=== PATIENT | female | born 1960 | race Caucasian/White ===

== ENCOUNTER → 2020-04-12 08:32 | Outpatient (CLI) | payer BC, SELFPAY ==
--- NOTE | ~2020-04-12 | MR_ITS ---
EXAMINATION: MR shoulder RT wo con DATE: 04/12/2020 09:06 INDICATION: Right shoulder pain and inability to externally rotate the right arm TECHNIQUE: Magnetic resonance imaging (MRI) of the right shoulder was performed without intravenous c ontrast. Sequences included axial PD-weighted FS FSE, coronal oblique PD-weighted FS FSE, coronal obl ique T2-weighted FS FSE, sagittal PD-weighted FS FSE, and sagittal T1-weighted SE. COMPARISON: None. FINDINGS: Coracoacromial arch: The acromion undersurface is curved in morphology (type II). The coracoacromial ligament is normal. M inimal acromioclavicular osteoarthritis. Rotator cuff: Mild supraspinatus tendinopathy without discrete tear. The infraspinatus, teres minor and subscapular is tendons are normal. Normal rotator cuff muscle bulk and signal. Biceps tendon, glenoid labrum and glenohumeral cartilage: Long head of the biceps tendon is normal. There is a small tear at the 12:00 position of the glenoid labrum. Glenohumeral cartilage is normal. Fluid: Small amount of fluid in the long head biceps tendon sheath which is disproportionate to the physiolo gic amount fluid in the glenohumeral joint space consistent with mild bicipital tenosynovitis. No loo se osteochondral bodies. Mild increased fluid signal in the subacromial/subdeltoid bursa consistent w ith minimal bursitis. Bones: Normal marrow signal with no edema, fracture or abnormal marrow replacing process. Minimal cystic william nge at the posterior facet of the greater tuberosity. IMPRESSION: 1. Mild supraspinatus tendinopathy without discrete tear. 2. Small tear at the 12:00 position of the superior glenoid labrum. 3. Mild bicipital tenosynovitis with normal-appearing tendon. 4. Minimal subacromial/subdeltoid bursitis. Reviewed, dictated and finalized at location A.
== END ==
PROVIDERS: Visit Provider Nurse Practitioner
DX: M75.51 Bursitis of right shoulder (principal); M75.21 Bicipital tendinitis, right shoulder
CPT/HCPCS: 73221

== ENCOUNTER 2020-09-19 12:50 | Outpatient (CLI) | payer BC, SELFPAY ==
--- NOTE | ~2020-09-19 | DEXA_ITS ---
Bone Density Report Name: Екатерина Raza Age: 60 Sex: Female Ethnicity: White Date of : 1960 Indication: osteopenia; hysterectomy; Referring Provider: RACHEL ORDOÑEZ Study: Bone densitometry was performed. Exam Date: September 19, 2020 Accession number: [id number] Bone Density: Region BMD T-score Z-score Classification AP Spine (L1-L4) 0.805 -2.2 -0.7 Osteopenia Femoral Neck (Left) 0.610 -2.2 -0.8 Osteopenia Total Hip (Left) 0.820 -1.0 0.0 Normal Total Hip Bilateral Avg 0.819 -1.0 0.0 Osteopenia Femoral Neck (Right) 0.627 -2.0 -0.6 Osteopenia Total Hip (Right) 0.817 -1.0 0.0 Normal World Health Organization criteria for BMD impression classify patients as: Normal (T-score at or above -1.0), Osteopenia (T-score between -1.0 and -2.5), or Osteoporosis (T-score at or below -2.5). 10-year Fracture Risk(1): Major Osteoporotic Fracture 10% Hip Fracture 1.5% Reported Risk Factors: [place] (), Neck BMD=0.610, BMI=23.2 (1) FRAX(R) Version 3.08. Fracture probability calculated for an untreated patient. Fracture probability may be lower if the patient has received treatment. Previous Exams: Region Exam Age BMD T-score BMD Change BMD Change Date g/cm2 vs Baseline vs Previous AP Spine(L1-L4) 09/19/2020 60 0.805 -2.2 -0.193(-19.3%) -0.043(-5.1%)# 06/23/2018 58 0.848 -1.8 -0.150(-15.0%) -0.097(-10.3%) 10/19/2015 55 0.944 -0.9 -0.053(-5.3%)# -0.035(-3.6%)# 03/19/2012 52 0.979 -0.6 -0.018(-1.8%)# -0.018(-1.8%)# 04/09/2007 47 0.997 -0.5 Total Hip(Left) 09/19/2020 60 0.820 -1.0 -0.082(-9.1%)# 0.019(2.4%)# 06/23/2018 58 0.801 -1.2 -0.101(-11.2%) -0.059(-6.8%)* 10/19/2015 55 0.859 -0.7 -0.042(-4.7%)# -0.087(-9.1%)# 03/19/2012 52 0.946 0.0 0.044(4.9%)# 0.044(4.9%)# 04/09/2007 47 0.902 -0.3 Total Hip(Right) 09/19/2020 60 0.817 -1.0 -0.072(-8.1%)# 0.006(0.7%)# 06/23/2018 58 0.811 -1.1 -0.078(-8.8%)# -0.053(-6.1%)* 10/19/2015 55 0.864 -0.6 -0.025(-2.8%)# -0.054(-5.9%)# 03/19/2012 52 0.918 -0.2 0.029(3.2%)# 0.029(3.2%)# 04/09/2007 47 0.890 -0.4 *Denotes significance at 95% confidence level, LSC for AP Spine = 0.022 g/cm2, LSC for Total Hip = 0.027 g/cm2 Clinical Information Provided by Patient: Has used the following medications: Vitamin D, Calcium Has the following medical conditions: Hysterectomy Patient maximum height was 62 Menopause Age: 51 No regular weight bearing exercise Onset of menses a
== END 2020-09-19 12:51 | disposition home or self-care (01) ==
PROVIDERS: PCP Family Medicine; Visit Provider Obstetrics & Gynecology
DX: Z78.0 Asymptomatic menopausal state (principal); M85.88 Other specified disorders of bone density and structure, other site; M85.852 Other specified disorders of bone density and structure, left thigh; M85.851 Other specified disorders of bone density and structure, right thigh
CPT/HCPCS: 77080

== ENCOUNTER → 2021-06-08 10:34 | Outpatient (CLI) | payer BC, SELFPAY ==
--- NOTE | ~2021-06-08 | MR_ITS ---
EXAMINATION: MR femur LT wo con DATE: 06/08/2021 11:30 INDICATION: Left hip pain. TECHNIQUE: Magnetic resonance imaging (MRI) of the left femur was performed without intravenous contr ast. Sequences included axial T1-weighted FSE and T2-weighted FS FSE and coronal and sagittal STIR FS E and T1-weighted FSE. COMPARISON: Pelvis and left hip radiographs 05/28/2021 FINDINGS: Bone alignment is normal. No fracture. The hip joints are normal on large [id number] natalya ges. The musculature is normal. The neurovascular bundles are normal. There is subcutaneous fat stran ding in the medial and lateral thigh. IMPRESSION: 1. Subcutaneous fat stranding in the medial and lateral thigh, likely mild inflammation. Reviewed, dictated and finalized at location A. IMPRESSION: 1. Subcutaneous fat stranding in the medial and lateral thigh, likely mild infl ammation.
== END ==
PROVIDERS: PCP Family Medicine; Visit Provider Nurse Practitioner Family
DX: M25.552 Pain in left hip (principal)
CPT/HCPCS: 73721

== ENCOUNTER 2025-01-24 01:43 | Day surgery (SDC) | payer MEDICARE, SELFPAY ==
[2025-01-11 14:11] VITALS: BMI 23.3
[2025-01-24] VITALS (7 sets, daily range): BP systolic 114–166; BP diastolic 57–77; PULSE 46–60; RESP 16–23; TEMP 36.2; O2SAT 99–100; BMI 23.1
--- OUTSIDE RECORDS SUMMARY | 2025-01-24 01:46 | XMS_ITS | Encounter Summary ---
Author Organization [facility] Healthcare Address [address] [place] [address] Care Team Providers Care Fashion Intern Name Role Phone Alanna Alvarez MD Primary Care Provider Unknown, Nighat Primary Care Provider Unavail able Anel Marc MD Primary Care Provider Manuel Ziegler MD Primary Care Provider [phone] Estella Li NP Unavailable [phone] Ralph Bosch MD Unavailable [phone] Abhishek Edwards MD Unavailable [phone] Duncan Jones MD Unavailable [phone] Brandon Marquez MD Unavailable [phone] Meg Rueda MD Unavailable [phone] Sofia Covarrubias MD Unavailable [phone] Encounter Details Date Type Department Care Team (Late st Contact Info) Description 01/17/2021 Telephone [facility] - Imaging [address] [place] [address] Transcribed Order, Provider Social History Tobacco Use Types Packs/Day Years Used Date Smoking Tobacco: Never Smokeless Tobacco: Never Alcohol Use Standard Drinks/Week Comments Yes 0 (1 standard drink = 0.6 oz pur e alcohol) AUDIT-C Answer Date Recorded Q1: How often do you have a drink containing alc ohol? 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 12/09/2022 12/10/2022 03/09/2023 3:05 AM C DT documented as of this encounter Care Teams Fashion Intern Relationship Specialty Start Date End Date Alanna Alvarez MD PCP - General Family Medicine 07/14/18 04/08/21 Unknown, Notinfile PCP - General 04/09/21 06/18/21 Anel Marc MD PCP - General Family Practice 06/19/21 08/07/21 Manuel Ziegler MD PCP - General Family Medicine 08/08/21 Estella Li NP [address] [place] [id number] Registered Nurse 02/18/22 Ralph Bosch MD [address] [facility] [address] [place] [address] Referring Physician Obstetrics and Gynecology 08/21/22 Abhishek Edwards MD [facility] [place] [address] Consulting Physician Otolaryngology 09/01/24 Duncan Jones MD [address] [facility] [address] [place] [address] Consulting Physician Neurology 09/01/24 Brandon Marquez MD [address] [facility] [address] [place] [address] Referring Physician Bone Health 09/01/24 Meg Rueda MD [address] [facility] [address] [place] [address] Referring Physician Cardiology 09/01/24 Sofia Covarrubias MD [address] [facility] [address], [place] [address] Consulting Physician Interventional Cardiology 09/01/24 documented as of this encounter
--- OUTSIDE RECORDS SUMMARY | 2025-01-24 01:46 | XMS_ITS | Clinical Summary ---
Author Organization [facility] Address [address] [place] [address] Care Team Providers Care Senior Database Engineer Name Role Phone Manuel Ziegler MD Primary Care Provider Estella Li NP Unavailable [phone] Ralph Bosch MD Unavailable [phone] Abhishek Edwards MD Unavailable [phone] Duncan Jones MD Unavailable Brandon Marquez MD Unavailable [phone] Meg Rueda MD Unavailable [phone] Sofia Covarrubias MD Unavailable [phone] Allergies Active Allergy Reactions Criticality Noted Date Comments Amoxicillin Amoxicillin-Pot Clavulanate Atorvastatin Other (See comments) Low Reaction: chest pain, Latex Rash Medium 07/10/2020 Pt states not allergic to, has some sensitivity if on skin for long time Medications aspirin 81 mg tablet take 1 tablet by oral route every day 0 0 4 Active UBIDECARENONE (COENZYME Q10 ORAL) Take by mouth daily. Active VIT A/VIT C/VIT E/ZINC/COPPER (PRESERVISION AREDS ORAL) Take by mouth daily. Active magnesium gluconate 200 mg tabletIndications :hypomagnesemia 1 tablet (200 mg total) 2 (two) times a day Active cholecalciferol (Vitamin D3) 4,000 unit capsule Take 1 capsule (4,000 Units total) by mouth daily 1 Active Restasis 0.05 % ophthalmic emulsion 1 Active L.acid/L.casei/B. bif/B.christiano/FOS (PROBIOTIC BLEND ORAL) Take by mouth Active triamcinolone (KENALOG) 0.1 % ointment 1 Active cladribine (MAVENCLAD, 10 TABLET PACK, ORAL) Take by mouth Active guaiFENesin ER (MUCINEX) 600 mg 12 hr tablet Take 2 tablets (1,200 mg total) by mouth 2 (two) times a day Active loratadine (CLARITIN) 10 mg tablet Take 1 tablet (10 mg total) by mouth daily Active BIOTIN ORAL Take by mouth Active prasterone, dhea, (Intrarosa) 6.5 mg insert Insert 6.5 mg into the vagina daily Active traZODone (DESYREL) 50 mg tabletIndications :Primary insomnia TAKE 1 TABLET(50 MG) BY MOUTH EVERY NIGHT NEEDED FOR SLEEP 30 tablet 5 3 Active clobetasoL (TEMOVATE) 0.05 % ointment 4 Active ibandronate (BONIVA) 150 mg tabletIndications :Post-Menopausal Osteoporosis Prevention Take 1 tablet (150 mg total) by mouth every 30 (thirty) days Take in AM with glass of water prior to food, don't lie down for 30 minutes. 3 tablet 3 4 02/04/20 25 Active ipratropium (ATROVENT) 21 mcg (0.03 %) nasal spray 4 Active rosuvastatin (CRESTOR) 20 mg tablet Take 1 tablet (20 mg total) by mouth daily 90 tablet 3 5 Active lisinopriL (PRINIVIL,ZESTRIL ) 20 mg tabletIndications :Essential hypertension Take 1 tablet (20 mg total) by mouth 2 (two) times a day 180 tablet 3 5 Active metoprolol XL (TOPROL-XL) 25 mg extended release tabletIndications :Essential hypertension Take 2 tablets (50 mg total) by mouth daily 5 Active Active Problems Problem Noted Date Diagnosed Date Encounter for Medicare annual wellness exam 12/2023 Assessment & Plan (09/01/2024 1:06 PM BALANCE ENGINEER): A(n) yearly Medicare Annual Wellness Visit has been performed today. Екатерина Raza is not up to date on screening tests. She is in need of Breast cancer screening, Colon cancer screening, and Hepatitis B screen. She is not up to date on needed preventative vaccinations; She is in need of Influenza and Pneumonia (Prevnar-13 or Pneumovax-23). We discussed healthy lifestyle habits, educational material has been given. Medications reviewed, changes documented as per the medical record and discussed with patient along with risks vs benefits. Specific topics reviewed: drugs, ETOH, and tobacco, importance of regular dental care, importance of regular exercise, importance of varied diet, limit TV, media violence, minimize junk food, and seat belts. Return in 6 months Estrogen deficiency 07/18/2023 Trochanteric bursitis of left hip 02/25/2022 Assessment & Plan (02/25/2022 11:08 AM CDT): Likely trochanteric bursitis causing the left hip pain. I can do injections here, but we likely won't be able to get until next 1-2 weeks due to scheduling. Please check with ortho, see if they can get you in sooner. If not, we can do it here Voltaren OTC trial (topical cream) 3-4 times per day. If it is helpful, we may be able to forgo injection Raynaud's phenomenon without gangrene 02/18/2022 Encounter for medical examination to establish c are 08/12/2021 Assessment & Plan (08/12/2021 5:10 PM BALANCE ENGINEER): A yearly well visit (also to establish care today) has been performed today. Екатерина Raza is not up to date on screening tests. She is in need of cervical cancer screening (she has gyne)- these have been ordered. She is up to date on needed preventative vaccinations. XR for ankle ordered Labs as ordered as well, for next visit. The EKG was fine, I didn't see irregularity heard on exam. Will hve to be revisited periodically Begin fiber supplementation. Decrease intake of brassica vegetables (broccoli, brussels sprouts, turnips, cabbage, kale, cauliflower, etc) BP is low-normal today. 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) Ophthalmology follow-up Assessment & Plan (03/27/2023 10:14 AM CDT): 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) Ophthalmology follow-up Assessment & Plan (10/22/2022 12:46 PM BALANCE ENGINEER): 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) Ophthalmology follow-up Assessment & Plan (06/13/2021 7:50 AM CDT): 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) Ophthalmology follow-up Assessment & Plan (11/27/2020 4:20 PM BALANCE ENGINEER): 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) Ophthalmology follow-up Assessment & Plan (05/29/2020 9:02 AM CDT): 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) Ophthalmology follow-up Assessment & Plan (11/26/2019 7:29 AM BALANCE ENGINEER): 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 Temazepam effective in the past, but caused a.m. sedation. Assessment & Plan (03/03/2024 5:18 PM CDT): Trazodone 25 mg at night as needed Only partial response to melatonin and Benadryl. Temazepam effective in the past, but caused a.m. sedation. Assessment & Plan (09/26/2023 1:54 PM BALANCE ENGINEER): Trazodone 25 mg at night as needed Only partial response to melatonin and Benadryl. Temazepam effective in the past, but caused a.m. sedation. Assessment & Plan (03/27/2023 10:14 AM CDT): Decrease trazodone 25 mg at night as needed Only partial response to melatonin and Benadryl. Temazepam effective in the past, but caused a.m. sedation. Assessment & Plan (10/22/2022 12:46 PM BALANCE ENGINEER): Trazodone 50 mg at night as needed Only partial response to melatonin and Benadryl. Temazepam effective in the past, but caused a.m. sedation. Assessment & Plan (12/18/2021 6:53 AM CDT): Only partial response to melatonin and Benadryl. Will initiate trazodone 50 mg at night. Temazepam effective in the past, but caused a.m. sedation. Assessment & Plan (11/27/2020 4:20 PM BALANCE ENGINEER): Benadryl as needed Assessment & Plan (05/29/2020 9:03 AM CDT): Benadryl as needed Assessment & Plan (11/26/2019 7:29 AM BALANCE ENGINEER): Benadryl as needed Assessment & Plan (02/25/2019 11:37 AM CDT): Benadryl as needed Previously on temazepam Assessment & Plan (08/25/2018 1:48 PM BALANCE ENGINEER): Benadryl p.r.n. 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 Nonspecific intracranial white matter lesions and multifocal cervical spinal cord lesions. Enhancing C6-7 lesion in October 2006 resulted in focal encephalomalacia of the cervical cord at the left C6-7 level. Completed 2nd month of year 2 of Mavenclad November 2022. The benefits and risks of Mavenclad were discussed including leukopenia, serious infections including PML, liver injury and potential malignancy. Increased risk of serious complications if she develops COVID-19 reinfection discussed including pneumonia and possibly . Last COVID-19 vaccine was fall 2023. She understands that Mavenclad may reduce the efficacy of a COVID-19 vaccine and potentially she may not be protected. Paxlovid advised if she develops recurrent COVID-19. Retinal infarct on Rebif, hypertension on Aubagio, lymphocytopenia on Vumerity and Tecfidera. YASMIN virus antibody negative 12/06/19 but patient preferred Mavenclad over Tysabri. For severe back itching tried: Cymbalta (not tolerated), Neurontin (caused incontinence), Lidoderm patch (ineffective) and topical meds. Vitamin D3 5000 IU daily. MRI brain and cervical spine without contrast January 2025 Assessment & Plan (03/03/2024 5:18 PM CDT): NMO antibody negative 02/25/19 and 05/21/05 05/21/04 CSF: 4 OCB unique to CSF, IgG synthesis <1.0, IgG index 0.58. Nonspecific intracranial white matter lesions and multifocal cervical spinal cord lesions. Enhancing C6-7 lesion in October 2006 resulted in focal encephalomalacia of the cervical cord at the left C6-7 level. Completed 2nd month of year 2 of Mavenclad December 16-2022. The benefits and risks of Mavenclad were discussed including leukopenia, serious infections including PML, liver injury and potential malignancy. Increased risk of serious complications if she develops COVID-19 reinfection discussed including pneumonia and possibly . Last COVID-19 vaccine was July 30, 2023. She understands that Mavenclad may reduce the efficacy of a COVID-19 vaccine and potentially she may not be protected. Paxlovid advised if she develops recurrent COVID-19. Retinal infarct on Rebif, hypertension on Aubagio, lymphocytopenia on Vumerity and Tecfidera. YASMIN virus antibody negative 12/06/19 but patient preferred Mavenclad over Tysabri. For severe back itching tried: Cymbalta (not tolerated), Neurontin (caused incontinence), Lidoderm patch (ineffective) and topical meds. Vitamin D3 4000 IU daily. MRI brain and cervical spine without contrast January 2025 Assessment & Plan (09/26/2023 1:53 PM BALANCE ENGINEER): NMO antibody negative 02/25/19 and 05/21/05 05/21/04 CSF: 4 OCB unique to CSF, IgG synthesis <1.0, IgG index 0.58. Nonspecific intracranial white matter lesions and multifocal cervical spinal cord lesions. Enhancing C6-7 lesion in October 2006 resulted in focal encephalomalacia of the cervical cord at the left C6-7 level. Completed 2nd month of year 2 of Mavenclad December 16-2022. The benefits and risks of Mavenclad were discussed including leukopenia, serious infections including PML, liver injury and potential malignancy. Increased risk of serious complications if she develops COVID-19 reinfection discussed including pneumonia and possibly on Mavenclad treatment. She received J&J COVID-19 vaccine on December 03, 2020 and Moderna booster on July 27, 2021 while on Copaxone. Last COVID-19 vaccine July 30, 2023. She understands that Mavenclad may reduce the efficacy of a COVID-19 vaccine and potentially she may not be protected. If she develops recurrent COVID-19, Paxlovid advised. Retinal infarct on Rebif, hypertension on Aubagio, lymphocytopenia on Vumerity and Tecfidera. YASMIN virus antibody negative 12/06/19 but patient preferred Mavenclad over Tysabri. For severe back itching tried: Cymbalta (not tolerated), Neurontin (caused incontinence), Lidoderm patch (ineffective) and topical meds. Vitamin D3 4000 IU daily. MRI brain and cervical spine without contrast January 2025 Assessment & Plan (03/27/2023 10:13 AM CDT): NMO antibody negative 02/25/19 and 05/21/05 05/21/04 CSF: 4 OCB not in serum, IgG synthesis <1.0, IgG index 0.58. Nonspecific intracranial white matter lesions and multifocal cervical spinal cord lesions. Enhancing C6-7 lesion in October 2006 resulted in focal encephalomalacia of the cervical cord at the left C6-7 level. Completed 2nd month of year 2 of Mavenclad December 16-2022. The benefits and risks of Mavenclad were discussed including leukopenia, serious infections including PML, liver injury and potential malignancy. CBC and liver function tests in May 2023. Increased risk of serious complications if develops COVID-19 reinfection discussed including pneumonia and possibly on Mavenclad treatment. She received J&J COVID-19 vaccine on December 03, 2020 and Moderna booster on July 27, 2021 while on Copaxone. Her last COVID-19 vaccine was on July 15, 2022. She understands that Mavenclad may reduce the efficacy of a COVID 19 vaccine and potentially she may not be protected. If she develops recurrent COVID-19, Paxlovid advised. Retinal infarct on Rebif, hypertension on Aubagio, lymphocytopenia on Vumerity and Tecfidera. YASMIN virus antibody negative 12/06/19 but patient preferred Mavenclad to Tysabri. For severe back itching tried: Cymbalta (not tolerated), Neurontin (caused incontinence), Lidoderm patch (ineffective) and topical meds. Vitamin D3 4000 IU daily. MRI brain and cervical spine without contrast December 2022 Assessment & Plan (10/22/2022 12:45 PM BALANCE ENGINEER): NMO antibody negative 02/25/19 and 05/21/05 05/21/04 CSF: 4 OCB not in serum, IgG synthesis <1.0, IgG index 0.58. Nonspecific intracranial white matter lesions and multifocal cervical spinal cord lesions. Enhancing C6-7 lesion in October 2006 resulted in focal encephalomalacia of the cervical cord at the left C6-7 level. Mavenclad initiated October 11, 2021. Next course do now. The benefits and risks of Mavenclad were discussed including leukopenia, serious infections including PML, liver injury and potential malignancy. CBC 2 months and 6 months after next dose Increased risk of serious complications if develops COVID-19 reinfection discussed including pneumonia and possibly on Mavenclad treatment. She received J&J COVID-19 vaccine on December 03, 2020 and Moderna booster on July 27, 2021 while on Copaxone. Her last COVID-19 vaccine was on July 15, 2022. She understands that Mavenclad may reduce the efficacy of a COVID 19 vaccine and potentially she may not be protected. If she develops recurrent COVID-19, Paxlovid advised. Retinal infarct on Rebif, hypertension on Aubagio, lymphocytopenia on Vumerity and Tecfidera. YASMIN virus antibody negative 12/06/19 but patient preferred Mavenclad to Tysabri. For severe back itching tried: Cymbalta (not tolerated), Neurontin (caused incontinence), Lidoderm patch (ineffective) and topical meds. Vitamin D3 4000 IU daily. MRI brain and cervical spine without contrast December 2022 Assessment & Plan (12/18/2021 6:52 AM CDT): NMO antibody negative 02/25/19 and 05/21/05 05/21/04 CSF: 4 OCB not in serum, IgG synthesis <1.0, IgG index 0.58. Nonspecific intracranial white matter lesions and multifocal cervical spinal cord lesions. Enhancing C6-7 lesion in October 2006 resulted in focal encephalomalacia of the cervical cord at the left C6-7 level. Mavenclad initiated October 11, 2021. Next course in September 2022. The benefits and risks of Mavenclad were discussed including leukopenia, serious infections including PML, liver injury, potential malignancy and even . Will arrange for CBC now and 6 months per prescribing information. Lymphocytes have normalized after lymphocytopenia on Vumerity (discontinued April 2020). Increased risk of serious complications if develops COVID-19 reinfection discussed including pneumonia and possibly on Mavenclad treatment. She received J&J COVID-19 vaccine on December 03, 2020 and Moderna booster on July 27, 2021 while on Copaxone. She understands that Mavenclad in prior lymphocytopenia may reduce the efficacy of a COVID 19 vaccine and potentially she may not be protected. If she develops recurrent COVID-19, Paxlovid advised. Retinal infarct on Rebif, hypertension on Aubagio, lymphocytopenia on Vumerity and Tecfidera. YASMIN virus antibody negative 12/06/19 but patient preferred Mavenclad to Tysabri.. For severe back itching tried: Cymbalta (not tolerated), Neurontin (caused incontinence), Lidoderm patch (ineffective) and topical meds. Vitamin D3 4000 IU daily. Assessment & Plan (06/13/2021 7:50 AM CDT): NMO antibody negative 02/25/19 and 05/21/05 05/21/04 CSF: 4 OCB not in serum, IgG synthesis <1.0, IgG index 0.58. Nonspecific intracranial white matter lesions and multifocal cervical spinal cord lesions. Enhancing C6-7 lesion in October 2006 resulted in focal encephalomalacia of the cervical cord at the left C6-7 level. Copaxone 40 mg 3 times a week. Risks discussed including recurrent lipoatrophy. Since lymphocytes have normalized after lymphocytopenia on Vumerity (discontinued April 2020), Mavenclad can be initiated. Patient wants to defer until September 2021. The benefits and risks of Mavenclad were discussed including leukopenia, serious infections including PML, liver injury and potential malignancy. Increased risk of serious complications if develops COVID-19 infection discussed including pneumonia and possibly on Mavenclad treatment. She received J&J COVID-19 vaccine on December 03, 2020 while on Copaxone. Booster vaccination on Copaxone prior switching to Mavenclad recommended, but not available yet. Option of getting an mRNA vaccine discussed as a booster. Retinal infarct on Rebif, hypertension on Aubagio, lymphocytopenia on Vumerity and Tecfidera. Currently back on Copaxone. YASMIN virus antibody negative 12/06/19 my patient prefers to start Mavenclad rather than Tysabri. For severe back itching tried: Cymbalta (not tolerated), Neurontin (caused incontinence), Lidoderm patch (ineffective) and topical meds. Vitamin D3 4000 IU daily. Assessment & Plan (11/27/2020 4:20 PM BALANCE ENGINEER): NMO antibody negative 02/25/19 and 05/21/05 05/21/04 CSF: 4 OCB not in serum, IgG synthesis <1.0, IgG index 0.58. Nonspecific intracranial white matter lesions and multifocal cervical spinal cord lesions. Enhancing C6-7 lesion in October 2006 resulted in focal encephalomalacia of the cervical cord at the left C6-7 level. Copaxone 40 mg 3 times a week. Risks discussed including recurrent lipoatrophy. When lymphocytes have normalized after lymphocytopenia on Vumerity (discontinued April 2020), will consider switch to Mavenclad. The benefits and risks of Mavenclad were discussed including leukopenia, serious infections including PML, harm, liver injury and potential malignancy. COVID-19 pandemic discussed. Patient planning on getting COVID-19 vaccinated as soon as available to her. She is maintaining social distancing. Goal would be due complete COVID-19 vaccination at least 3 weeks before starting Mavenclad. Retinal infarct on Rebif, hypertension on Aubagio, lymphocytopenia on Vumerity and Tecfidera. Currently back on Copaxone. YASMIN virus antibody negative 12/06/19. For severe back itching tried: Cymbalta (not tolerated), Neurontin (caused incontinence), Lidoderm patch (ineffective) and topical meds. Vitamin D3 4000 IU daily. MRI brain and cervical spine December 2020 Assessment & Plan (05/29/2020 2:03 PM CDT): NMO antibody negative 02/25/19 and 05/21/05 05/21/04 CSF: 4 OCB not in serum, IgG synthesis <1.0, IgG index 0.58. Nonspecific intracranial white matter lesions and multifocal cervical spinal cord lesions. Enhancing C6-7 lesion in October 2006 resulted in focal encephalomalacia of the cervical cord at the left C6-7 level. Vumerity 462 mg twice a day. Risks and benefits of Vumerity were discussed including flushing, n/v/d, abdominal pain, hepatotoxicity, low white blood cell count, and serious infection including PML. Importance of lymphocyte monitoring was discussed with the patient to minimize the risk of PML. She understands that her lymphocyte count is relatively low and the 500-600 range. Increased risk of serious complications if develops coronavirus infection (COVID-19) discussed including pneumonia and possible reviewed. Patient wants to continue Vumerity. She is maintaining social distancing. Retinal infarct on Rebif, hypertension on Aubagio, and also treated with Copaxone. YASMIN virus antibody negative 12/06/19. For severe back itching tried: Cymbalta (not tolerated), Neurontin (caused incontinence), Lidoderm patch (ineffective) and topical meds. Vitamin D3 4000 IU daily. MRI brain and cervical spine December 2020 Assessment & Plan (11/26/2019 7:28 AM BALANCE ENGINEER): 05/21/05 NMO antibody negative 05/21/04 CSF: 4 OCB not in serum, IgG synthesis <1.0, IgG index 0.58. Nonspecific intracranial white matter lesions and multifocal cervical spinal cord lesions. Enhancing C6-7 lesion in October 2006 resulted in focal encephalomalacia of the cervical cord at the left C6-7 level. Since ongoing flatulence on Tecfidera, will switch to Vumerity. Risks and benefits of Vumerity were discussed including flushing, n/v/d, abdominal pain, hepatotoxicity, low white blood cell count, and serious infection including PML. Her lymphocytes decreased to 0.5 in January 2019, but subsequently increased. Importance of lymphocyte monitoring was discussed with the patient to minimize the risk of PML. Retinal infarct on Rebif, hypertension on Aubagio, and Copaxone not tolerated. For severe back itching tried: Cymbalta (not tolerated), Neurontin (caused incontinence), Lidoderm patch (ineffective) and topical meds. Vitamin D3 4000 IU daily. Assessment & Plan (02/25/2019 11:37 AM CDT): 05/21/05 NMO antibody negative 05/21/04 CSF: 4 OCB not in serum, IgG synthesis <1.0, IgG index 0.58. Nonspecific intracranial white matter lesions and multifocal cervical spinal cord lesions. Enhancing C6-7 lesion in October 2006 resulted in focal encephalomalacia of the cervical cord at the left C6-7 level. Tecfidera. Risks discussed including PML. Will check lymphocyte counts today. Patient understands that low lymphocytes will increase the risk of PML. Retinal infarct on Rebif, hypertension on Aubagio, and Copaxone not tolerated. For severe back itching tried: Cymbalta (not tolerated), Neurontin (caused incontinence), Lidoderm patch (ineffective) and topical meds. Vitamin D3 4000 IU daily. Assessment & Plan (08/25/2018 1:44 PM BALANCE ENGINEER): Tecfidera. Risks discussed including PML. Will check lymphocyte counts today. Patient understands that low lymphocytes will increase the risk of PML. Retinal infarct on Rebif, hypertension on Aubagio, and Copaxone not tolerated. MRI brain and cervical spine December 2018 For severe back itching tried: Cymbalta (not tolerated), Neurontin (caused incontinence), Lidoderm patch (ineffective) and topical meds. On vitamin D 2000 IU alternating with 4000 IU daily. Assessment & Plan (02/05/2018 8:15 PM CDT): Cholestyramine washout of Aubagio (stopped in Oct 2017). Will check teriflunomide level after washout. Patient will consider Tecfidera vs. [id number] trial. Risks and benefits of Tecfidera discussed including flushing, n/v/d, hepatotoxicity, harm, low white count, and serious infection including PML. Vit D3 supplement 1000 IU daily MRI brain and cervical spine December 2018 For severe back itching tried: Cymbalta (not tolerated), Neurontin (caused incontinence), Lidoderm patch (ineffective) and topical meds. Assessment & Plan (08/06/2017 9:47 AM BALANCE ENGINEER): Copaxone 40 mg TIW; risks discussed including IPIR. Patient interested in oral DMTs. The benefits and risks of Gilenya were discussed including bradycardia, heart block, hypertension, macular edema, serious infections (including PML/cryptococcal meningitis), pulmonary/hepatic toxicity, basal carcinoma and even . Risks and benefits of Tecfidera discussed including flushing, n/v/d, hepatotoxicity, low white count, and serious infection including PML. Risks and benefits of Aubagio discussed including low white count/potential serious infection, hypertension, hepatotoxicity, alopecia and diarrhea. Pt most interested in Aubagio. She desires to review information before making a decision whether to switch. Vitamin D3 supplement Exercise For severe back itching tried: Cymbalta (not tolerated), Neurontin (caused incontinence), topical meds. Lidoderm patch previously not approved, will try again due to severity of problem. MRI brain and c-spine December 2018 Palpitations 10/27/2015 Overview (01/02/2017): Palpitations Essential hypertension 10/27/2015 Overview (01/02/2017): Essential hypertension Assessment & Plan (08/19/2022 9:40 PM BALANCE ENGINEER): BP is controlled Continuing Toprol XL, lisinopril Renal function is acceptable HMV in 6 mos Family history of coronary artery disease 2015 Overview (01/02/2017): Family history of premature CAD Resolved Problems Problem Noted Date Diagnosed Date Resolved Date Drug intolerance 12/18/2015 08/06/2017 Overview (01/02/2017): Statin intolerance Encounters Date Type Department Care Team Description 12/22/2024 2:30 PM CDT Office Visit [facility] Primary Care at [address] [phone] Manuel Ziegler MD Essential hypertension 12/16/2024 Telephone [facility] Primary Care at [address] [phone] Manuel Ziegler MD resubmit DOS 09/01/24 or change code 11/04/2024 3:15 PM BALANCE ENGINEER Office Visit [facility] Primary Care at [address] [phone] Manuel Ziegler MD Skin mass (Primary Dx) 11/03/2024 Telephone [facility] Primary Care at [address] [phone] Manuel Ziegler MD 11/01/2024 Telephone [facility] Department [address] [facility] [address] [place] [phone] Duncan Joens MD memory issues 11/01/2024 Telephone [facility] Primary Care at [address] [phone] Maunel Ziegler MD Appointment Request 10/27/2024 6:15 PM BALANCE ENGINEER Office Visit [facility] at [address] [phone] Heena Gary NP Skin mass (Primary Dx) from Last 3 Months Immunizations Immunization Administration Dates Next Due COVID-19 mRNA ([employer]) 0.3 m L (30 mcg) vaccine (12 years and up) 06/24/2024,07/14/2023 Influenza, Quadrivalent, Jennifer l Culture-based MDCK, Preservative Free, Antibiotic Free, Intramuscular 07/14/2023,07/18/2022 Influenza, Quadrivalent, Rec ombinant, Egg Free, Preservative Free, Intramuscular 09/03/2018 Influenza, Quadrivalent, Spl it, Preservative Free, Intramuscular 07/10/2020,08/06/2019 Influenza, Trivalent, High D ose, Split, Preservative Free, Intramuscular 06/24/2024 Influenza, Trivalent, IM (MDV) 07/12/2021 Influenza, Unspecified 07/30/2023,06/30/2021 Moderna SARS-CoV-2 Monovalent Vaccination (12+ Y RS) 07/27/2021 Pfizer SARS-CoV-2 Monovalent Vaccination (12+ Yrs) PURPLE 07/30/2023 Pneumococcal Conjugate Pcv20 09/01/2024 Tdap 10/31/2015 ZOSTER Recombinant 11/25/2019,08/06/2019 Surgical History Surgery Date Site/Laterality Comments TONSILLECTOMY Tonsillectomy HYSTERECTOMY Medical History Medical History Date Comments Hx Other Medical multiple sclero sis, followed by Dr. 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 Heart attack Father Jakob Hypertension Father Jakob Macular degeneration Father Jakob Macular degeneration Maternal Grandfather Colon cancer Maternal Grandmother Debbie Stroke Maternal Grandmother Debbie Stroke; Hypothyroidism Mother Osteoporosis Mother Heart attack Paternal Grandfather Hypothyroidism Sister 1 Osteoporosis Sister 1 Graves' disease Sister 2 Broken bones Neg Hx Hip fracture Neg Hx Kyphosis Neg Hx Scoliosis Neg Hx Relation Name Status Comments Father Jakob Alive Maternal Grandfather Maternal Grandmother Debbie Mother Alive Paternal Grandfather Sister 1 Alive Sister 2 Alive Social History Tobacco Use Types Packs/Day Years Used Date Smoking Tobacco: Never Passive Smoke Exposure: Never Smokeless Tobacco: Never Alcohol Use Standard Drinks/Week Comments Yes 0 (1 standard drink = 0.6 oz pur e alcohol) AUDIT-C Answer Date Recorded Q1: How often do you have a drink containing alc ohol? 2-4 times a month 08/08/2021 Q2: How many drinks containi ng alcohol do you have on a typical day when you are drinking? 1 or 2 08/08/2021 Q3: How often do you have si x or more drinks on one occasion? 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 Not on file Not on file Not on file Obstetrics History Last Filed Vital Signs Vital Sign Reading Time Taken Comments Blood Pressure 130/76 12/22/2024 2:30 PM CDT Pulse 70 12/22/2024 2:30 PM CDT Temperature 36 C (96.8 F) 12/22/2024 2:30 PM CDT Respiratory Rate 16 12/22/2024 2:30 PM CDT Oxygen Saturation 97% 12/22/2024 2:30 PM CDT Inhaled Oxygen Concentration - - Weight 58.1 kg (128 lb) 12/22/2024 2:30 PM CDT Height 157.5 cm (5' 2 ) 12/22/2024 2:30 PM CDT Body Mass Index 23.41 12/22/2024 2:30 PM CDT Plan of Treatment Health Maintenance Due Date Last Done Comments Hepatitis B Screening 1978 Covid-19 Vaccine ( season) 2024 06/24/2024, 07/30/2023, 07/14/2023, Additional history exists Depression Screening 09/01/2025 09/01/2024, 03/01/2024, 08/25/2023, Additional history exists Fall Risk Assessment 09/01/2025 09/01/2024, 08/25/2023, 02/19/2023 Well Visit 65+ 09/01/2025 09/01/2024, 08/08/2021 Breast Cancer Screening-Mammogram 09/28/2025 09/28/2024, 09/18/2023, 08/21/2022, Additional history exists Colon Cancer Screening-Colonoscopy 09/28/2025 12/23/2016 Postponed from 12/24/2023 (Patient declined, but will receive in the future) DTaP/Tdap/Td Vaccine (2 - Td or Tdap) 10/31/2025 10/31/2015 Osteoporosis Screening-Bone Density Scan 02/03/2026 02/04/2024, 01/13/2023, 12/17/2021, Additional history exists Colon Cancer Screening-CT Colonography Discontinued 12/23/2016 Colon Cancer Screening-DNA Stool Discontinued 12/23/2016 Colon Cancer Screening-FIT Discontinued 12/23/2016 Colon Cancer Screening-Sigmoidoscopy Discontinued 12/23/2016 Zoster Vaccine Completed 11/25/2019, 08/06/2019 Hepatitis C Screening Completed 01/02/2021 Influenza Vaccine Completed 06/24/2024, , 07/14/2023, Additional history exists Pneumococcal vaccine 65+ Completed 09/01/2024 Procedures Procedure Name Priority Date/Time Associated Diagnosis Comments SCREENING MAMMOGRAM BILATERAL W LENARD Schedule Routine, Read Routine (OP Routine) 09/28/2024 9:35 AM BALANCE ENGINEER Screening mammogram, encounter for DEXA TBS AXIAL SKELETON BONE DENSITY 1 OR MORE SITES Schedule Routine, Read Routine (OP Routine) 02/04/2024 10:32 AM CDT Osteopenia, unspecified location HEPATITIS PANEL, ACUTE Routine 01/02/2021 8:48 AM CDT Multiple sclerosis (HCC) High risk medication use HM COLONOSCOPY Routine 12/23/2016 from Last 3 Months or Most Recently Relevant to Health Maintenance Results * Screening Mammogram Bilateral W Lenard (09/28/2024 9:35 AM BALANCE ENGINEER) Anatomical Region Laterality Modality Breast Bilateral Mammography Narrative 09/28/2024 1:17 PM BALANCE ENGINEER Mammogram Technique: Bilateral Digital Breast Tomosynthesis, Bilateral C-view 2D Screening mammogram. Views obtained: bilateral craniocaudal and bilateral mediolateral oblique. Computer Aided Detection was performed. Mammogram Findings: The present examination has been compared to prior imaging studies performed at [facility] on 04/09/2021, 08/21/2022 and 09/18/2023. There are scattered areas of fibroglandular density. There is no suspicious abnormality in either breast. Impression: There is no mammographic evidence of malignancy. Annual screening mammography is recommended. OVERALL FINAL ASSESSMENT: BI-RADS CATEGORY 1: Negative. Procedure Note Verona Cavazos MD - 09/28/2024 Mammogram Technique: Bilateral Digital Breast Tomosynthesis, Bilateral C-view 2D Screening mammogram. Views obtained: bilateral craniocaudal and bilateral mediolateral oblique. Computer Aided Detection was performed. Mammogram Findings: The present examination has been compared to prior imaging studies performed at [facility] on 04/09/2021, 08/21/2022 and 09/18/2023. There are scattered areas of fibroglandular density. There is no suspicious abnormality in either breast. Impression: There is no mammographic evidence of malignancy. Annual screening mammography is recommended. OVERALL FINAL ASSESSMENT: BI-RADS CATEGORY 1: Negative. us Self Screening Mammogram IMG MAMMO PROCEDURES Fi nal Result * Dexa TBS Axial Skeleton Bone Density 1 or more sites (02/04/2024 10:32 AM CDT) Anatomical Region Laterality Modality Wrist, Body N/A Radiographic Estelita ging Narrative 02/05/2024 12:29 PM CDT Patient Name: Екатерина Raza Date of : 1960 Date of scan: 02/04/2024 Bone mineral density was performed on a [employer] Discovery Densitometer. Based on machine cross-calibration and precision studies the least significant changes of this densitometer is 0.024 g/cm2 at the spine, 0.020 g/cm2 at the total proximal femur, and 0.014g/cm2 at the forearm. HISTORY: This is a 64 y.o. postmenopausal female with a history of low bone mass. She reports that she has never smoked. She has never been exposed to tobacco smoke. She has never used smokeless tobacco. Currently on treatment with vitamin D and ibandronate (Boniva) and previously treated with hormone replacement therapy. INDICATIONS: Menopause status, treatment monitoring, and history of low bone mass. FINDINGS: BONE MINERAL DENSITY OF THE LUMBAR SPINE Bone Mineral Density (BMD) of the lumbar spine was measured from L1-L4 and the average density was calculated to be 0.886 gm/cm2. This corresponds to a T-score (standard deviations from the mean of young adults) of -1.5. When compared to the previous study of 01/13/2023 there has been no significant changes in bone density. BONE MINERAL DENSITY OF THE PROXIMAL FEMUR Bone Mineral Density (BMD) of the left hip total was found to be 0.765 gm/cm2. This corresponds to a T-score standard deviations from the mean of young adults of -1.5. Femoral neck is 0.613 gm/cm2 with a T-score (standard deviations from the mean of young adults) of -2.1. When compared to the previous study of 01/13/2023 there has been no significant changes in bone density. SUMMARY: Bone mineral density shows evidence of low bone mass at the lumbar spine and proximal femur and moderately increased fracture risk (Osteopenia). There has been no significant changes in bone density since previous measurement. The lumbar spine Trabecular Bone Score is 1.383 which suggests normal bone microarchitecture, compared to the general population. Final decisions regarding diagnostic or therapeutic recommendations should include BMD, TBS, additional clinical risk factors as well the clinical context of the patient. Please see attached TBS results for further details. ADDITIONAL COMMENTS: Postmenopausal Women and Men Over 50: Diagnostic criteria: Osteoporosis: BMD at or below -2.5 T-score; Osteopenia (low bone mass): BMD between -1.0 and -2.5 T-score. If the patient has a history of a fragility fracture, a fracture that occurred with trauma equivalent to a fall from a standing position or less, then the diagnosis is osteoporosis regardless of bone density. The history and data sections of the bone mineral density scan were prepared by Sadia Larios) ANGELES who is accredited by the International Society of Clinical Densitometry. The overall patient assessment and scan interpretation were performed by Brandon Marquez MD who is certified by the International Society of Clinical Densitometry. [id number] us Brandon Marquez MD IM DXA PROCEDURES Final Re sult * Hepatitis panel, acute (01/02/2021 8:48 AM CDT) Hep A IgM NON-REACTIVE NON-REACT JACKELINE [facility] Comment: For additional information, please refer to http://education.[employer].com/faq/TUE030 (This link is being provided for informational/ educational purposes only.) HepBsAg NON-REACTIVE NON-REACT JACKELINE [facility] HBV Surface ag, confirm CANCELED [facility] Comment:Result canceled by elis donaldson. Hep B core IgM NON-REACTIVE NON-REACT JACKELINE [facility] Hep C Ab NON-REACTIVE NON-REACT JACKELINE [facility] SIGNAL TO CUT-OFF 0.01 <1.00 [facility] Comment: HCV antibody was non-reactive. There is no laboratory evidence of HCV infection. In most cases, no further action is required. However, if recent HCV exposure is suspected, a test for HCV RNA (test code 98644) is suggested. For additional information please refer to http://education.[employer].co.uk/faq/QSM89p3 (This link is being provided for informational/ educational purposes only.) Blood specimen (specimen) 01/02/2021 8:48 AM CDT 01/02/2021 8:49 AM CDT Narrative [facility] - 01/04/2021 2:56 PM CDT PT VARIFIED ALL PT INFO AND STATED THIS IS CORRECT ORDER FASTING:YES AN UPDATE OR CORRECTION HAS BEEN MADE TO NAME FASTING: YES Duncan Jones MD LAB MICROBIOLOGY - GENERAL OR DERABLES Final Result [facility] [address] [place] [address] * HM COLONOSCOPY (12/23/2016) Historical Provider HEALTH MAINTENANCE Final Result from Last 3 Months or Most Recently Relevant to Health Maintenance Insurance [facility] ACCESS CHOICE MEDICARE [facility] MEDICARE AARP Member Subscriber Plan / Payer (Ef fective 2023-Present) Name:Екатерина Raza Relation to Subscriber:Self Name:Екатерина Raza Payer ID:[id number] Group ID:Not on file Type:[employer] Address: [address] [place] [address] Care Teams Senior Database Engineer Relationship Specialty Start Date End Date Manuel Ziegler MD PCP - General Family Medicine 08/08/21 Estella Li NP [address] [address] Registered Nurse 02/18/22 Ralph Bosch MD [address] [address] Referring Physician Obstetrics and Gynecology 08/21/22 Abhishek Edwards MD [address] [place] [address] Consulting Physician Otolaryngology 09/01/24 Duncan Jones MD [address] [place] [address] Consulting Physician Neurology 09/01/24 Brandon Marquez MD [address] [facility] [address] [place] [address] Referring Physician Bone Health 09/01/24 Meg Rueda MD [address] [facility] [address] [place] [address] Referring Physician Cardiology 09/01/24 Sofia Covarrubias MD [address] [facility] [address] [place] [address] Consulting Physician Interventional Cardiology 09/01/24
--- OUTSIDE RECORDS SUMMARY | 2025-01-24 01:46 | XMS_ITS | Referral Summary ---
Author Organization [facility] Address [address] [place] [address] Care Team Providers Care Loss Mitigation Specialist Name Role Phone Manuel Ziegler MD Primary Care Provider Estella Li NP Unavailable Ralph Bosch MD Unavailable Abhishek Edwards MD Unavailable [phone] Duncan Jones MD Unavailable Brandon Marquez MD Unavailable Meg Rueda MD Unavailable [phone] Sofia Covarrubias MD Unavailable Encounters Date Type Department Care Team Description 12/22/2024 2:30 PM CDT Office Visit [facility] Primary Care at [address] [phone] Manuel Ziegler MD Essential hypertension 12/16/2024 Telephone [facility] Medical [facility] Primary Care at [address] [phone] Manuel Ziegler MD resubmit DOS 09/01/24 or change code 11/04/2024 3:15 PM MANAGER OF ALLIED HEALTH SERVICES Office Visit [facility] Medical [facility] Primary Care at [address] [phone] Manuel Ziegler MD Skin mass (Primary Dx) 11/03/2024 Telephone [facility] Primary Care at [address] [phone] Manuel Ziegler MD 11/01/2024 Telephone [facility] in [facility] [place] [address] [facility] [address] [place] [phone] Duncan Jones MD memory issues 11/01/2024 Telephone [facility] Primary Care at [address] [phone] Manuel Ziegler MD Appointment Request 10/27/2024 6:15 PM MANAGER OF ALLIED HEALTH SERVICES Office Visit [facility] Care at [address] [phone] Heena Gary NP Skin mass (Primary Dx) from Last 3 Months Allergies Active Allergy Reactions Criticality Noted Date [...] 12/2023 Assessment & Plan (09/01/2024 1:06 PM MANAGER OF ALLIED HEALTH SERVICES): A(n) yearly Medicare Annual Wellness Visit has been performed today. 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) Ophthalmology follow-up On aspirin 81 mg daily Assessment & Plan (09/26/2023 1:54 PM MANAGER OF ALLIED HEALTH SERVICES): 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) Ophthalmology follow-up Assessment & Plan (03/27/2023 10:14 AM CDT): 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) Ophthalmology follow-up Assessment & Plan (10/22/2022 12:46 PM MANAGER OF ALLIED HEALTH SERVICES): 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) Ophthalmology follow-up Assessment & Plan (06/13/2021 7:50 AM CDT): 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) Ophthalmology follow-up Assessment & Plan (11/27/2020 4:20 PM MANAGER OF ALLIED HEALTH SERVICES): 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) Ophthalmology follow-up Assessment & Plan (05/29/2020 9:02 AM CDT): 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) Ophthalmology follow-up Assessment & Plan (11/26/2019 7:29 AM MANAGER OF ALLIED HEALTH SERVICES): 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) Ophthalmology follow-up Assessment & Plan (02/25/2019 11:37 AM CDT): 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 Temazepam effective in the past, but caused a.m. sedation. Assessment & Plan (03/03/2024 5:18 PM CDT): Trazodone 25 mg at night as needed Only partial response to melatonin and Benadryl. Temazepam effective in the past, but caused a.m. sedation. Assessment & Plan (09/26/2023 1:54 PM MANAGER OF ALLIED HEALTH SERVICES): Trazodone 25 mg at night as needed Only partial response to melatonin and Benadryl. Temazepam effective in the past, but caused a.m. sedation. Assessment & Plan (03/27/2023 10:14 AM CDT): Decrease trazodone 25 mg at night as needed Only partial response to melatonin and Benadryl. Temazepam effective in the past, but caused a.m. sedation. Assessment & Plan (10/22/2022 12:46 PM MANAGER OF ALLIED HEALTH SERVICES): Trazodone 50 mg at night as needed Only partial response to melatonin and Benadryl. Temazepam effective in the past, but caused a.m. sedation. Assessment & Plan (12/18/2021 6:53 AM CDT): Only partial response to melatonin and Benadryl. Will initiate trazodone 50 mg at night. Temazepam effective in the past, but caused a.m. sedation. Assessment & Plan (11/27/2020 4:20 PM MANAGER OF ALLIED HEALTH SERVICES): Benadryl as needed Assessment & Plan (05/29/2020 9:03 AM CDT): Benadryl as needed Assessment & Plan (11/26/2019 7:29 AM MANAGER OF ALLIED HEALTH SERVICES): Benadryl as needed Assessment & Plan (02/25/2019 11:37 AM CDT): Benadryl as needed Previously on temazepam Assessment & Plan (08/25/2018 1:48 PM MANAGER OF ALLIED HEALTH SERVICES): Benadryl p.r.n. 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 The benefits and risks of Mavenclad were [...] 2025 Assessment & Plan (09/26/2023 1:53 PM MANAGER OF ALLIED HEALTH SERVICES): NMO antibody negative 02/25/19 and 05/21/05 05/21/04 [...] 2022 Assessment & Plan (10/22/2022 12:45 PM MANAGER OF ALLIED HEALTH SERVICES): NMO antibody negative 02/25/19 and 05/21/05 05/21/04 [...] daily. Assessment & Plan (11/27/2020 4:20 PM MANAGER OF ALLIED HEALTH SERVICES): NMO antibody negative 02/25/19 and 05/21/05 05/21/04 [...] 2020 Assessment & Plan (11/26/2019 7:28 AM MANAGER OF ALLIED HEALTH SERVICES): 05/21/05 NMO antibody negative 05/21/04 CSF: 4 [...] daily. Assessment & Plan (08/25/2018 1:44 PM MANAGER OF ALLIED HEALTH SERVICES): Tecfidera. Risks discussed including PML. Will check [...] meds. Assessment & Plan (08/06/2017 9:47 AM MANAGER OF ALLIED HEALTH SERVICES): Copaxone 40 mg TIW; risks discussed including [...] hypertension Assessment & Plan (08/19/2022 9:40 PM MANAGER OF ALLIED HEALTH SERVICES): BP is controlled Continuing Toprol XL, lisinopril Renal function is acceptable HMV in 6 mos Family history of coronary artery disease 2015 Overview (01/02/2017): Family history of premature CAD Resolved Problems Problem Noted Date Diagnosed Date Resolved Date Drug intolerance 12/18/2015 08/06/2017 Overview (01/02/2017): Statin intolerance Immunizations Immunization Administration Dates Next Due COVID-19 mRNA (3D FUTURE VISION II) 0.3 m L (30 mcg) vaccine (12 [...] Pcv20 09/01/2024 Tdap 10/31/2015 ZOSTER Recombinant 11/25/2019,08/06/2019 Social History Tobacco Use Types Packs/Day Years [...] on file Legal Sex Female 1:11 AM MANAGER OF ALLIED HEALTH SERVICES Gender Identity Not on file Sexual Orientation Not on file 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 Not on file Not on file Not on file Last Filed Vital Signs Vital Sign Reading [...] 12/22/2024 2:30 PM CDT Plan of Treatment Not on file Procedures Procedure Name Priority Date/Time Associated Diagnosis Comments SCREENING MAMMOGRAM BILATERAL W LENARD Schedule Routine, Read Routine (OP Routine) 09/28/2024 9:35 AM MANAGER OF ALLIED HE[facility] SERVICES Screening mammogram, encounter for DEXA TBS AXIAL [...] Mammogram Bilateral W Lenard (09/28/2024 9:35 AM MANAGER OF ALL[employer] [facility]) Anatomical Region Laterality Modality Breast Bilateral Mammography Narrative 09/28/2024 1:17 PM MANAGER OF ALLIED HE[employer] SERVICES Mammogram Technique: Bilateral Digital Breast Tomosynthesis, Bilateral C-view 2D Screening mammogram. Views obtained: bilateral craniocaudal and bilateral mediolateral oblique. Computer Aided Detection was performed. Mammogram Findings: The present examination has been compared to prior imaging studies performed at [facility] on 04/09/2021, 08/21/2022 and 09/18/2023. There are [...] compared to prior imaging studies performed at [facility] on 04/09/2021, 08/21/2022 and 09/18/2023. There are [...] by the International Society of Clinical Densitometry. [id number] Brandon Marquez MD IMG DXA PROCEDURES Final Re sult * Hepatitis panel, acute (01/02/2021 8:48 AM CDT) Hep A IgM NON-REACTIVE NON-REACT JACKELINE [facility] Comment: For additional information, please refer to [email or web address]/faq/UQP917 (This link is being provided for informational/ [...] a test for HCV RNA (test code 28748) is suggested. For additional information please refer to http://[email or web address]aceuticals/faq/RUQ81m0 (This link is being provided for informational/ educational purposes only.) Blood specimen (specimen) 01/02/2021 8:48 AM CDT 01/02/2021 8:49 AM CDT Narrative [facility] - 01/04/2021 2:56 PM CDT PT VARIFIED ALL PT INFO AND STATED THIS IS CORRECT ORDER FASTING:YES AN UPDATE OR CORRECTION HAS BEEN MADE TO NAME FASTING: YES Duncan Jones MD LAB MICROBIOLOGY - GENERAL OR DERABLES Final Result [facility] [address] [id number] * HM COLONOSCOPY (12/23/2016) Historical Provider HEALTH MAINTENANCE Final Result from Last 3 Months or Most Recently Relevant to Health Maintenance Insurance [employer] [facility] Address: [facility] [address] [place] [address] MEDICARE [facility] MEDICARE [facility] * Guarantor: Екатерина Raza Account Type Relation to Patient Date of Phone Billing Address Confidential Self [address] [place] [phone] Care Teams Loss Mitigation Specialist Relationship Specialty Start Date End Date Manuel Ziegler MD PCP - General Family Medicine 08/08/21 Estella Li NP [address] [place] [id number] Registered Nurse 02/18/22 Ralph Bosch MD [address] [facility] [address] [place] [address] [address] [place] [address] Referring Physician Obstetrics and Gynecology 08/21/22 Abhishek Edwards MD [facility] [place] [address] Consulting Physician Otolaryngology 09/01/24 Duncan Jones MD [address] [facility] [address] [place] [address] Consulting Physician Neurology 09/01/24 Brandon Marquez MD [address] [facility] [address] [place] [address] Referring Physician Bone Health 09/01/24 Meg Rueda MD [address] [place] [address] Referring Physician Cardiology 09/01/24 Sofia Covarrubias MD [address] [facility] [address], [place] [id number] Consulting Physician Interventional Cardiology 09/01/24
--- OUTSIDE RECORDS SUMMARY | 2025-01-24 01:46 | XMS_ITS | Clinical Summary ---
Author Organization [facility] Address [address] [place] [place] [address] Care Team Providers Care Air Grinder Name Role Phone Unavailable Primary Care Provider Unavailabl e Source Comments [facility],non-owned Affiliates and Associated Physician Practices is amultiple site organization consisting of ambulatory clinics and hospital sitesin [place], [place], [place] and [place]. This disclosure is being madepursuant to the Care Everywhere program and may not contain all information available regarding this patient. Last updated [email or web address] [facility] Allergies Active Allergy Reactions Criticality Noted Date Comments Augmentin Diarrhea 09/03/2018 Latex Skin Reactions 07/10/2020 Pt states not allergic to, has some sensitivity if on skin for long time Medications * Be aware that medications may not be up to date on this document. Alwaysverify current medications with the patient. Cholecalciferol (VITAMIN D3) 10 MCG (400 UNIT) tablet Take 400 Units by mouth once daily Active rosuvastatin (CRESTOR) 10 MG tablet Take 10 mg by mouth once daily Active Metoprolol-hydro CHLOROthiazide (METOPROLOL-HCTZ ER PO) Active Immunizations Immunization Administration Dates Next Due INFLUENZA VACCINE, QUADR. (F LUZONE; FLULAVAL; FLUARIX; AFLURIA QUADRIVALENT; 6MO+), 0.5 ML (IIV4) 07/10/2020,08/06/2019 iNFLUENZA VACCINE, RECOM-MCNEAL, QUADR. (FLUBLOCK QUADRIVALENT; 18Y+) (RIV4) 09/03/2018 Social History Tobacco Use Types Packs/Day Years Used Date Smoking Tobacco: Never Smokeless Tobacco: Never Alcohol Use Standard Drinks/Week Comments Yes 0 (1 standard drink = 0.6 oz pur e alcohol) Comments Unknown Sex and Gender Information Value Date Recorded Sex Assigned at Not on file Legal Sex Female 2:49 PM CASH PROCESSING SPECIALIST Gender Identity Not on file Sexual Orientation Not on file Last Filed Vital Signs Vital Sign Reading Time Taken Comments Blood Pressure 122/80 10/06/2019 11:38 AM CASH PROCESSING SPECIALIST Pulse 57 10/06/2019 11:38 AM CASH PROCESSING SPECIALIST Temperature 36.6 C (97.9 F) 10/06/2019 11:38 AM CASH PROCESSING SPECIALIST Respiratory Rate 16 10/06/2019 11:38 AM CASH PROCESSING SPECIALIST Oxygen Saturation 98% 10/06/2019 11:38 AM CASH PROCESSING SPECIALIST Inhaled Oxygen Concentration - - Weight 57.6 kg (127 lb) 10/06/2019 11:38 AM CASH PROCESSING SPECIALIST Height 157.5 cm (5' 2 ) 10/06/2019 11:38 AM CASH PROCESSING SPECIALIST Body Mass Index 23.23 10/06/2019 11:38 AM CASH PROCESSING SPECIALIST Plan of Treatment Health Maintenance Due Date Last Done Comments BONE DENSITY TESTING 1960 COLOGUARD (AGES 45-75) - COL ON CA SCREENING 1960 COLON MONITORING 1960 COLONOSCOPY - COLON CA SCREENING 1959 CT COLONOGRAPHY - COLON CA SCREENING 1960 Colorectal Cancer Screening 1960 FIT - COLON CA SCREENING 1959 FLEX SIG - COLON CA SCREENING 1960 MAMMOGRAM 1960 HEPATITIS C SCREENING 01/01/1977 DTAP/TDAP/TD VACCINES (1 - Tdap) 1978 PNEUMOCOCCAL VACCINE 50+ (1 of 1 - PCV) 2009 ZOSTER VACCINE (1 of 2) 2009 COVID-19 VACCINE ( - 2023-2 5 season) 2024 DEPRESSION SCREENING 09/29/2024 INFLUENZA VACCINE (Season Ended) 2025 07/10/2020, 08/06/2019, 09/03/2018 Respiratory Syncytial Virus (RSV) Vaccine Pt: or over 60 yrs (1 - 1-dose 75+ series) 2034 HEPATITIS B VACCINE Aged Out No longe r eligible based on patient's age to complete this topic HIB VACCINE Aged Out No longer eligi ble based on patient's age to complete this topic HPV VACCINE Aged Out No longer eligi ble based on patient's age to complete this topic MENINGOCOCCAL (Group B) VACCINE SHARED DECISION-MAKING Aged Out No longer eligible based on patient's age to complete this topic MENINGOCOCCAL GROUPS A/C/Y/W VACCINE Aged Out No longer eligible b ased on patient's age to complete this topic Insurance ANTHEM ANTHEM
--- OUTSIDE RECORDS SUMMARY | 2025-01-24 01:46 | XMS_ITS | Clinical Summary ---
Author Organization [facility] Address [address] [place] [id number] Care Team Providers Care Finished Goods Inspector Name Role Phone Unavailable Primary Care Provider Unavailabl e Medications TECFIDERA 240 MG CAPSULE DELAYED RELEASE 12/16/2019 Active VUMERITY 231 MG CAPSULE DELAYED RELEASE 05/15/2020 Active IMVEXXY MAINTENANCE PACK 10 MCG INSERT 08/21/2020 Active COPAXONE 40 MG/ML injection 10/27/2020 Active lisinopril 20 MG tablet 12/16/2019 Active meloxicam 7.5 MG tablet 07/31/2020 Active metoprolol succinate ER 50 MG 24 hr tablet 08/29/2020 Active rosuvastatin 20 MG tablet 08/28/2020 Active Immunizations Immunization Administration Dates Next Due Shingrix 11/25/2019 Social History Tobacco Use Types Packs/Day Years Used Date Smoking Tobacco: Never Assessed Comments Unknown Sex and Gender Information Value Date Recorded Sex Assigned at Not on file Legal Sex Female 1:29 PM CUSTOMS PORT DIRECTOR Gender Identity Not on file Sexual Orientation Not on file Plan of Treatment Health Maintenance Due Date Last Done Comments Colorectal Cancer Screening Colonoscopy (10 Years) 1959 Hepatitis C 1977 DTaP, Tdap and Td Vaccines ( 1 - Tdap) 1978 Mammogram Screening 1999 Pneumococcal Vaccine: 50+ Ye ars (1 of 1 - PCV) 2009 Zoster Vaccines (2 of 2) 01/20/2020 11/25/2019 Dexa Scan (General) 01/07/2024 COVID-19 Vaccine ( - 2023-2 5 season) 2024 RSV Immunization or 60+ Years (1 - 1-dose 75+ series) 2034 Meningococcal B Vaccine Aged Out No l onger eligible based on patient's age to complete this topic Meningococcal Vaccine Aged Out No christiano karely eligible based on patient's age to complete this topic RSV Immunizations Under 20 Months Aged Out No longer eligible based on patient's age to complete this topic
[2025-01-24] MEDS: LACTATED RINGERS 1,000 ML 150 ML IV CONT (09:35)
--- NOTE | 2025-01-24 10:00 | WPDANESEPPF ---
Anes - Initial Pre Proc Eval Procedure: Operation Date: 01/24/25 10:30 Proposed Procedures p Colonoscopy - Miguel Jay MD Date/Time: 01/24/25 10:00 Surgeon: Miguel Jay MD Pre Op Diagnosis: family hx of cancer Patient Data Age: 65 Gender: F Height: 1.57 m Weight: 57.5 kg Last Vital Signs Temp 97.2 F L 01/24/25 09:24 Pulse 60 01/24/25 09:24 Resp 16 01/24/25 09:24 BP 166/67 H 01/24/25 09:24 Pulse Ox 100 01/24/25 09:24 O2 Del Method Room Air 01/24/25 09:24 Allergies Allergy/AdvReac Type Severity Reaction Status Date / Time clavulanic acid (From Allergy Unknown Unknown Verified 01/24/25 09:23 Augmentin) amoxicillin AdvReac Unknown Diarrhea Verified 01/24/25 09:23 POTASSIUM CLAVULANATE Allergy Unknown DIARRHEA Uncoded 01/24/25 09:23 Home Medications ?Medication ?Instructions ?Recorded ?Confirmed ?Type aspirin 81 mg tablet,delayed 81 mg PO DAILY 03/27/20 01/24/25 History release (Adult Low Dose Aspirin) cholecalciferol (vitamin D3) 100 100 mcg PO DAILY 03/27/20 01/24/25 History mcg (4,000 unit) capsule magnesium 200 mg tablet 200 mg PO DAILY 03/27/20 01/24/25 History rosuvastatin 20 mg tablet 20 mg PO DAILY 03/27/20 01/24/25 History lisinopril 20 mg tablet 40 mg PO DAILY 06/21/21 01/24/25 History coenzyme Q10 75 mg capsule (Ultra 75 mg PO DAILY 07/13/21 01/24/25 History CoQ10) ibandronate 150 mg tablet (Boniva) 150 mg PO MONTHLY 07/25/22 01/11/25 History clobetasol 0.05 % topical ointment 1 applic topical DAILY PRN itching 11/20/23 01/11/25 Rx #15 grams triamcinolone acetonide 0.1 % 1 applic topical DAILY PRN itching 11/20/23 01/11/25 Rx topical ointment #15 grams metoprolol succinate 25 mg 50 mg PO DAILY 09/14/24 01/24/25 History tablet,extended release 24 hr prasterone (dhea) 6.5 mg vaginal 1 insert vaginal DAILY #28 ea 12/15/24 01/24/25 Rx insert (Intrarosa) sodium sul 1.479 gram-potas ch See Rx Instructions PO PER PKG DIR 01/10/25 01/24/25 Rx 0.188 gram-magnes sul 0.225 gram #24 tabs tablet (Sutab) Patient hx anesthesia problems: none Family hx anesthesia problems: none Results Review: All pre-operative results and documents have been reviewed as part of the pre-operative evaluation. [facility] Past Medical History Medical History Osteopenia Adhesive capsulitis of left shoulder Left shoulder pain Trochanteric bursitis of left hip Fibrous cortical defect of femur Left hip pain SLAP tear of shoulder Biceps tendonitis Seasonal allergies Vision abnormalities Subacromial bursitis Adhesive capsulitis Right shoulder pain Multiple sclerosis Hypertension Surgical History Surgical History History of tonsillectomy History of cardiac cath H/O total hysterectomy Family History Family History Grandparent Carcinoma of colon Hypertension Cerebrovascular accident Father Family history of coronary artery disease Mother Family history of thyroid disease Family history of hyperthyroidism Sibling Family history of hyperthyroidism Social History Social History Smoking status: Never smoker Second hand tobacco smoke exposure: No Alcohol intake: current Drinks per week: 1 Anes - Eval Final PreProcedure Day of Procedure 01/24/25 10:00 Patient weight: normal Lungs: normal air movement Airway: Mallampati scale class II Neurological: alert and oriented Last oral intake: >/= 8 hours ASA classification: II Emergent: no Anesthetic plan: proceed Anesthesia type and monitoring: general GIVS and standard monitoring Results Review: All pre-operative results and documents have been reviewed as part of the pre-operative evaluation. HTN, hyperlipidemia. Informed Consent: The patient's anesthetic plan and its attendant risks and benefits were discussed with the patient/family/POA. Questions were solicited and answers provided to the satisfaction of the patient/family/POA.
--- NOTE | 2025-01-24 10:33 | PM.IMHP ---
H&P: HPI History of Present Illness Date/Time: 01/24/25 10:33 Chief Complaint: Screening colonoscopy Narrative: This is the patient's 3rd colonoscopy. There are no GI symptoms and there is no family history of colorectal cancer. Review of Systems Review of Systems: All systems reviewed & are unremarkable except as noted in HPI and below PMFSH Past Medical History Medical History Osteopenia Adhesive capsulitis of left shoulder Left shoulder pain Trochanteric bursitis of left hip Fibrous cortical defect of femur Left hip pain SLAP tear of shoulder Biceps tendonitis Seasonal allergies Vision abnormalities Subacromial bursitis Adhesive capsulitis Right shoulder pain Multiple sclerosis Hypertension Surgical History Surgical History History of tonsillectomy History of cardiac cath H/O total hysterectomy Family History Family History Grandparent Carcinoma of colon Hypertension Cerebrovascular accident Father Family history of coronary artery disease Mother Family history of thyroid disease Family history of hyperthyroidism Sibling Family history of hyperthyroidism Social History Social History Smoking status: Never smoker Second hand tobacco smoke exposure: No Alcohol intake: current Drinks per week: 1 Meds Home Medications and Allergies Home Medications ?Medication ?Instructions ?Recorded ?Confirmed ?Type aspirin 81 mg tablet,delayed 81 mg PO DAILY 03/27/20 01/24/25 History release (Adult Low Dose Aspirin) cholecalciferol (vitamin D3) 100 100 mcg PO DAILY 03/27/20 01/24/25 History mcg (4,000 unit) capsule magnesium 200 mg tablet 200 mg PO DAILY 03/27/20 01/24/25 History rosuvastatin 20 mg tablet 20 mg PO DAILY 03/27/20 01/24/25 History lisinopril 20 mg tablet 40 mg PO DAILY 06/21/21 01/24/25 History coenzyme Q10 75 mg capsule (Ultra 75 mg PO DAILY 07/13/21 01/24/25 History CoQ10) ibandronate 150 mg tablet (Boniva) 150 mg PO MONTHLY 07/25/22 01/11/25 History clobetasol 0.05 % topical ointment 1 applic topical DAILY PRN itching 11/20/23 01/11/25 Rx #15 grams triamcinolone acetonide 0.1 % 1 applic topical DAILY PRN itching 11/20/23 01/11/25 Rx topical ointment #15 grams metoprolol succinate 25 mg 50 mg PO DAILY 09/14/24 01/24/25 History tablet,extended release 24 hr prasterone (dhea) 6.5 mg vaginal 1 insert vaginal DAILY #28 ea 12/15/24 01/24/25 Rx insert (Intrarosa) sodium sul 1.479 gram-potas ch See Rx Instructions PO PER PKG DIR 01/10/25 01/24/25 Rx 0.188 gram-magnes sul 0.225 gram #24 tabs tablet (Sutab) Allergies Allergy/AdvReac Type Severity Reaction Status Date / Time clavulanic acid (From Allergy Unknown Unknown Verified 01/24/25 09:23 Augmentin) amoxicillin AdvReac Unknown Diarrhea Verified 01/24/25 09:23 POTASSIUM CLAVULANATE Allergy Unknown DIARRHEA Uncoded 01/24/25 09:23 Vital Signs Vital Signs - 24 hr 01/24/25 09:24 Temperature 97.2 F L Pulse Rate 60 Respiratory Rate 16 Blood Pressure 166/67 H Pulse Oximetry 100 Oxygen Delivery Room Air Exam Const: General: cooperative and healthy appearing Resp: Effort & Inspection: normal respiratory effort and able to speak in complete sentences Auscultation: clear to auscultation bilaterally Cardio: Rate: regular rate Rhythm: regular rhythm GI: Inspection: normal to inspection GI Palp: No No hepatosplenomegaly present Auscultation: normal bowel sounds Rectal Exam: deferred Skin: General skin exam: normal color Psych: Appearance: grossly normal Mental Status: mental status grossly normal Assessment and Plan Assessment and plan (1) Encounter for screening colonoscopy: Code(s): Z12.11 - Encounter for screening for malignant neoplasm of colon Status: Acute Plan The patient is deemed a good candidate for the procedure. Consent signed. Will proceed.
--- NOTE | 2025-01-24 11:24 | ECG_ITS ---
Test Date: 2025-01-24 11:31:44 Measurements Intervals [place] Rate: 43 P: 54 DE: 147 QRS: 66 QRSD: 85 T: 53 QT: 471 QTc: 401 Interpretive Statements SINUS BRADYCARDIA BASELINE ARTIFACT- I, III, AVR, AVL ABNORMAL ECG No previous ECG available for comparison Electronically Signed On 01-24-2025 11:59:27 CDT by Gonzalez Murillo D.O.
--- NOTE | 2025-01-24 11:34 | SUR.PHASEII ---
Patient stated starting to have chest tightness . Patient said they're symptoms also included gas discomfort. Patient stated doesnt feel anxious . patient took metoprolol this morning which she said she has recently started, was notified and talked with patient and spouse. A verbal order from wilmar was ordered for a 12 lead EKG. Charge nurse ran test and results sent to cardiology to be read. Patient was given a soda and stated starting to feel better, by getting gas out. Chest tightness has subsided and gas discomfort has decreased.
--- NOTE | 2025-01-24 12:57 | SUR.PHASEII ---
Patients vitals were stable and was able to ambulate to chair to dress. Patient stated, I dont have chest pain anymore and no gas discomfort , when asked of any current symptoms. read patients EKG results and deemed her okay to go home. Patient's IV was then discontinued and educated to call the physicans number if she had any concerns.
== END 2025-01-24 12:10 | disposition home or self-care (01) ==
PROVIDERS: PCP Family Medicine; Referring Provider Family Medicine; Visit Provider Internal Medicine Gastroenterology
PROC: 0DJD8ZZ Inspection of Lower Intestinal Tract, Via Natural or Artificial Opening Endoscopic (ICD-10-PCS; CPT 45378; principal; 2025-01-24 10:30)
DX: Z12.11 Encounter for screening for malignant neoplasm of colon (principal); K64.8 Other hemorrhoids; G35 Multiple sclerosis; I10 Essential (primary) hypertension; M85.88 Other specified disorders of bone density and structure, other site; R94.31 Abnormal electrocardiogram [ECG] [EKG]; Z79.82 Long term (current) use of aspirin; Z79.83 Long term (current) use of bisphosphonates; Z98.890 Other specified postprocedural states; Z98.61 Coronary angioplasty status; Z80.0 Family history of malignant neoplasm of digestive organs; Z82.49 Family history of ischemic heart disease and other diseases of the circulatory system
CPT/HCPCS: G0105; 93005; J2003; J2704; J7120

== ENCOUNTER 2025-07-20 01:50 | Day surgery (SDC) | payer MEDICARE, SELFPAY ==
[2025-07-13 15:46] VITALS: BMI 24.2
--- OUTSIDE RECORDS SUMMARY | 2025-07-20 02:14 | XMS_ITS | Clinical Summary ---
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
--- OUTSIDE RECORDS SUMMARY | 2025-07-20 02:14 | XMS_ITS | Clinical Summary ---
Author Organization [facility] Address [address] [place] [address] Care Team Providers Care Rack Room Worker Name Role Phone Unavailable Primary Care Provider Unavailabl e Source Comments [facility],non-owned Affiliates and Associated Physician Practices is amultiple site organization consisting of ambulatory clinics and hospital sitesin [place], [place], [place] and [place]. This disclosure is being madepursuant to the Care Everywhere program and may not contain all information available regarding this patient. 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 Gender Identity Not on file Sexual Orientation Not on file Last Filed Vital Signs Vital Sign Reading Time Taken Comments Blood Pressure 122/80 10/06/2019 11:38 AM COLLEGE BASKETBALL COACH Pulse 57 10/06/2019 11:38 AM COLLEGE BASKETBALL COACH Temperature 36.6 C (97.9 F) 10/06/2019 11:38 AM COLLEGE BASKETBALL COACH Respiratory Rate 16 10/06/2019 11:38 AM COLLEGE BASKETBALL COACH Oxygen Saturation 98% 10/06/2019 11:38 AM COLLEGE BASKETBALL COACH Inhaled Oxygen Concentration - - Weight 57.6 kg (127 lb) 10/06/2019 11:38 AM COLLEGE BASKETBALL COACH Height 157.5 cm (5' 2) 10/06/2019 11:38 AM COLLEGE BASKETBALL COACH Body Mass Index 23.23 10/06/2019 11:38 AM COLLEGE BASKETBALL COACH Plan of Treatment Health Maintenance Due Date [...] 2009 ZOSTER VACCINE (1 of 2) 2009 DEPRESSION SCREENING 09/29/2024 COVID-19 VACCINE (1 - 2023-2 5 season) 2025 INFLUENZA VACCINE (#1) 2025 0, 08/06/2019, 09/03/2018 Respiratory Syncytial Virus (RSV) Vaccine [...]
--- OUTSIDE RECORDS SUMMARY | 2025-07-20 02:14 | XMS_ITS | Encounter Summary ---
Author Organization [facility] Address [address] [place] [address] Care Team Providers Care Precision Printing Worker Name Role Phone Rosas Lozoyayssa Ruth HUBER Unavailable [phone] Ralph Bosch MD Unavailable [phone] Abhishek Edwards MD Unavailable [phone] uDncan Jones MD Unavailable [phone] Brandon Marquez MD Unavailable [phone] Meg Rueda MD Unavailable [phone] Sofia Covarrubias MD Unavailable [phone] Manuel Ziegler MD Primary Care Provider [phone] Miguel Jay MD Unavailable + [phone] Encounter Details Date Type Department Care Team (Latest Contact Info) Description 06/28/2025 Results Follow-Up [facility] Primary Care at [address] [address] Manuel Ziegler MD [address] [place] [address] [address] [place] [address] Cryptosporidium and Giardia antigen assay Stool Social History Tobacco Use Types Packs/Day Years [...] points, staff should administer the PHQ-9) 0 03/02/2025 Comments No Sex and Gender Information Value Date Recorded Sex Assigned at Not on file Legal Sex Female 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 Gender Identity Not on file Sexual Orientation Not on file 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 Not on file Not on file documented as of this encounter Plan of Treatment Not on file documented as of this encounter Visit Diagnoses Not on filedocumented in this encounter Care Teams Precision Printing Worker Relationship Specialty Start Date End Date Manuel Ziegler MD [address] [facility] [address] [place], [place] [id number] PCP - General Family Medicine 08/08/21 Estella Lozoya NP [address] [facility] [address] [facility] [address] [place] [address] Registered Nurse 02/18/22 Ralph Bosch MD [address] [facility] [address] [facility] [address] [place] [address] Referring Physician Obstetrics and Gynecology 08/21/22 Abhishek Edwards MD [address] [place] [address] Consulting Physician Otolaryngology 09/01/24 Duncan Jones MD [address] [facility] [address] [place] [address] Consulting Physician Neurology 09/01/24 Brandon Marquez MD [address] [facility] [address] [place] [address] Referring Physician [facility] Health 09/01/24 Meg Rueda MD [address] [facility] [address] [place] [address] Referring Physician Cardiology 09/01/24 Sofia Covarrubias MD [address] [place] [address] [address] [facility] [address] [place] [address] Consulting Physician Interventional Cardiology 09/01/24 Miguel Jay MD [address] [facility] [address] [facility] [address] [place] [address] Gastroenterology 06/14/25 documented as of this encounter
--- OUTSIDE RECORDS SUMMARY | 2025-07-20 02:14 | XMS_ITS | Encounter Summary ---
Author Organization [facility] Address [address] [place] [address] Care Team Providers Care Mud Tank Operator Name Role Phone Rosas Lozoyayssa Ruth HUBER Unavailable [phone] Ralph Bosch MD Unavailable [phone] Abhishek Edwards MD Unavailable [phone] Duncan Jones MD Unavailable [phone] Brandon Marquez MD Unavailable [phone] Meg Rueda MD Unavailable [phone] Sofia Covarrubias MD Unavailable [phone] Manuel Ziegler MD Primary Care Provider [phone] Miguel Jay MD Unavailable + [phone] Reason for Visit * Reason Onset Date Comments Medical Question/Miscellaneous 06/20/2025 Encounter Details Date Type Department Care Team (Late st Contact Info) Description 06/20/[address] 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 They have educated their staff. * Telephone Encounter - Love Clayton MA - 06/20/2025 12:[address] Ziegler ordered stool test, but did not collect in office, pt was sent to the lab. * Telephone Encounter - Veronica Tena - 06/20/2025 9:50 AM CDT Medical Question/Miscellaneous Caller???s Concern: Lashon called regarding patient's cancelled lab order dated 06/15/25 stating thatpatient's stool sample was received in wrong specimen container and that patient would need to provide another sample in correct container for the Cryptosporidium and Giardia antigen assay Stool testing. Does message need to be routed? Yes-Action Needed documented in this encounter Plan of Treatment Not on file documented as of this encounter Visit Diagnoses Not on filedocumented in this encounter Care Teams Mud Tank Operator Relationship Specialty Start Date End Date Manuel Ziegler MD [address] [facility] [address] [place], [place] [id number] PCP - General Family Medicine 08/08/21 Estella Lozoya NP [address] [facility] [address] [place] [address] Registered Nurse 02/18/22 Ralph Bosch MD [address] [facility] [address] [facility] [address] [place] [address] Referring Physician Obstetrics and Gynecology 08/21/22 Abhishek Edwards MD [facility] [place] [address] Consulting Physician Otolaryngology 09/01/24 Duncan Jones MD [address] [facility] [address] [place] [address] Consulting Physician Neurology 09/01/24 Brandon Marquez MD [address] [place] [address] [address] [place] [address] Referring Physician Bone Health 09/01/24 Meg Rueda MD [address] [facility] [address] [facility] [address] [place] [address] Referring Physician Cardiology 09/01/24 Sofia Covarrubias MD [address] [facility] [address] [place] [address] Consulting Physician Interventional Cardiology 09/01/24 Miguel Jay MD [address] [facility] [address] [place] [address] Gastroenterology 06/14/25 documented as of this encounter
--- OUTSIDE RECORDS SUMMARY | 2025-07-20 02:14 | XMS_ITS | Clinical Summary ---
Author Organization [facility] Address [address] [place] [address] Care Team Providers Care Business Intelligence Manager Name Role Phone Estella Lozoya Ruth HUBER Unavailable [phone] Ralph Bosch MD Unavailable [phone] Abhishek Edwards MD Unavailable [phone] Duncan Jones MD Unavailable [phone] Brandon Marquez MD Unavailable [phone] Meg Rueda MD Unavailable [phone] Sofia Covarrubias MD Unavailable Manuel Ziegler MD Primary Care Provider Miguel Jay MD Unavailable Allergies Active Allergy Reactions Criticality Noted Date Comments Amoxicillin Amoxicillin-Pot Clavulanate Atorvastatin Other (See comments) Low Reaction: chest pain, Clavulanic Acid Diarrhea,Unknown Low 06/21/2021 Latex Rash Medium 07/10/2020 Pt states not allergic to, has some sensitivity if on skin for long time Medications aspirin 81 mg tablet take 1 tablet by oral route every day 0 0 4 Active UBIDECARENONE (COENZYME Q10 ORAL) Take by mouth daily. Active VIT A/VIT C/VIT E/ZINC/COPPER (PRESERVISION AREDS ORAL) Take by mouth daily. Active magnesium gluconate 200 mg tabletIndication s:hypomagnesemia 1 tablet (200 mg total) 2 (two) times a day Active cholecalciferol (Vitamin D3) 4,000 unit capsule Take 1 capsule (4,000 Units total) by mouth daily 1 Active Restasis 0.05 % ophthalmic emulsion 1 Active L.acid/L.casei/B .bif/B.christiano/FOS (PROBIOTIC BLEND ORAL) Take by mouth Active loratadine (CLARITIN) 10 mg tablet Take 1 tablet (10 mg total) by mouth daily Active BIOTIN ORAL Take by mouth Active prasterone, dhea, (Intrarosa) 6.5 mg insert Insert 6.5 mg into the vagina daily Active clobetasoL (TEMOVATE) 0.05 % ointment 4 Active ipratropium (ATROVENT) 21 mcg (0.03 %) nasal spray 4 Active rosuvastatin (CRESTOR) 20 mg tablet Take 1 tablet (20 mg total) by mouth daily 90 tablet 3 5 Active carvediloL (COREG) 12.5 mg tablet Take 1 tablet (12.5 mg total) by mouth 2 (two) times a day with meals 60 tablet 11 5 01/27/20 26 Active traZODone (DESYREL) 50 mg tabletIndication s:Primary insomnia Take 1 tablet (50 mg total) by mouth nightly 30 tablet 5 5 Active lisinopriL (PRINIVIL,ZESTRI L) 20 mg tabletIndication s:Essential hypertension Take 1 tablet (20 mg total) by mouth nightly 30 tablet 3 5 Active ibandronate (BONIVA) 150 mg tabletIndication s:Osteopenia, unspecified location TAKE 1 TABLET BY MOUTH EVERY 30 (THIRTY) DAYS IN THE MORNING WITH A GLASS OF WATER PRIOR TO EATING FOOD. DO NOT LIE DOWN FOR 30 MINUTES 3 tablet 1 5 Active cholestyramine (QUESTRAN) 4 gram powderIndication s:Change in stool caliber Take 0.5 packets (2 g total) by mouth 3 (three) times a day with meals 45 packet 5 Active triamcinolone (KENALOG) 0.1 % cream Apply to affected area 1-2 times daily as needed. Avoid face and groin. 30 g 5 Active triamcinolone (KENALOG) 0.1 % ointment 1 07/10/20 25 Discontinu ed(Therapy completed) Active Problems Problem Noted Date Diagnosed Date Moderate major depression 03/02/2025 Age-related osteoporosis wit tracee current pathological fracture 03/02/2025 Encounter for Medicare annual wellness exam 12/2023 Assessment & Plan (09/01/2024 1:06 PM EXTRUDER OPERATOR HORIZONTAL): A(n) yearly Medicare Annual Wellness Visit has [...] 08/12/2021 Assessment & Plan (08/12/2021 5:10 PM EXTRUDER OPERATOR HORIZONTAL): A yearly well visit (also to establish [...] 08/06/2017 Assessment & Plan (09/08/2024 4:26 PM EXTRUDER OPERATOR HORIZONTAL): 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) Ophthalmology follow-up On aspirin 81 mg daily Assessment & Plan (03/03/2024 5:19 PM CDT): 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) Ophthalmology follow-up On aspirin 81 mg daily Assessment & Plan (09/26/2023 1:54 PM EXTRUDER OPERATOR HORIZONTAL): 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) Ophthalmology follow-up Assessment & Plan (03/27/2023 10:14 AM CDT): 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) Ophthalmology follow-up Assessment & Plan (10/22/2022 12:46 PM EXTRUDER OPERATOR HORIZONTAL): 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) Ophthalmology follow-up Assessment & Plan (06/13/2021 7:50 AM CDT): 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) Ophthalmology follow-up Assessment & Plan (11/27/2020 4:20 PM EXTRUDER OPERATOR HORIZONTAL): 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) Ophthalmology follow-up Assessment & Plan (05/29/2020 9:02 AM CDT): 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) Ophthalmology follow-up Assessment & Plan (11/26/2019 7:29 AM EXTRUDER OPERATOR HORIZONTAL): 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) Ophthalmology follow-up Assessment & Plan (02/25/2019 11:37 AM CDT): 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 Temazepam effective in the past, but caused a.m. sedation. Assessment & Plan (03/03/2024 5:18 PM CDT): Trazodone 25 mg at night as needed Only partial response to melatonin and Benadryl. Temazepam effective in the past, but caused a.m. sedation. Assessment & Plan (09/26/2023 1:54 PM EXTRUDER OPERATOR HORIZONTAL): Trazodone 25 mg at night as needed Only partial response to melatonin and Benadryl. Temazepam effective in the past, but caused a.m. sedation. Assessment & Plan (03/27/2023 10:14 AM CDT): Decrease trazodone 25 mg at night as needed Only partial response to melatonin and Benadryl. Temazepam effective in the past, but caused a.m. sedation. Assessment & Plan (10/22/2022 12:46 PM EXTRUDER OPERATOR HORIZONTAL): Trazodone 50 mg at night as needed Only partial response to melatonin and Benadryl. Temazepam effective in the past, but caused a.m. sedation. Assessment & Plan (12/18/2021 6:53 AM CDT): Only partial response to melatonin and Benadryl. Will initiate trazodone 50 mg at night. Temazepam effective in the past, but caused a.m. sedation. Assessment & Plan (11/27/2020 4:20 PM EXTRUDER OPERATOR HORIZONTAL): Benadryl as needed Assessment & Plan (05/29/2020 9:03 AM CDT): Benadryl as needed Assessment & Plan (11/26/2019 7:29 AM EXTRUDER OPERATOR HORIZONTAL): Benadryl as needed Assessment & Plan (02/25/2019 11:37 AM CDT): Benadryl as needed Previously on temazepam Assessment & Plan (08/25/2018 1:48 PM EXTRUDER OPERATOR HORIZONTAL): Benadryl p.r.n. 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 Kwadwoloviaaron advised if she develops recurrent COVID-19. Retinal [...] 2025 Assessment & Plan (09/26/2023 1:53 PM EXTRUDER OPERATOR HORIZONTAL): NMO antibody negative 02/25/19 and 05/21/05 05/21/04 [...] 2022 Assessment & Plan (10/22/2022 12:45 PM EXTRUDER OPERATOR HORIZONTAL): NMO antibody negative 02/25/19 and 05/21/05 05/21/04 [...] daily. Assessment & Plan (11/27/2020 4:20 PM EXTRUDER OPERATOR HORIZONTAL): NMO antibody negative 02/25/19 and 05/21/05 05/21/04 [...] 2020 Assessment & Plan (11/26/2019 7:28 AM EXTRUDER OPERATOR HORIZONTAL): 05/21/05 NMO antibody negative 05/21/04 CSF: 4 [...] daily. Assessment & Plan (08/25/2018 1:44 PM EXTRUDER OPERATOR HORIZONTAL): Tecfidera. Risks discussed including PML. Will check [...] meds. Assessment & Plan (08/06/2017 9:47 AM EXTRUDER OPERATOR HORIZONTAL): Copaxone 40 mg TIW; risks discussed including [...] hypertension Assessment & Plan (08/19/2022 9:40 PM EXTRUDER OPERATOR HORIZONTAL): BP is controlled Continuing Toprol XL, lisinopril Renal function is acceptable HMV in 6 mos Family history of coronary artery disease 2015 Overview (01/02/2017): Family history of premature CAD Resolved Problems Problem Noted Date Diagnosed Date Resolved Date Drug intolerance 12/18/2015 08/06/2017 Overview (01/02/2017): Statin intolerance Encounters Date Type Department Care Team Description 07/10/2025 7:30 PM CDT Office Visit [facility] at [address] [address] [place] Blas [place] Insect bite of left elbow, initial encounter (Primary Dx) 06/28/2025 Results Follow-Up [facility] Primary Care at [address] [phone] Manuel Ziegler MD Cryptosporidium and Giardia antigen assay Stool 06/27/2025 8:00 AM CDT Lab [address] [address] Change in stool 06/20/2025 Telephone [facility] Primary Care at [address] [address] Manuel Ziegler MD Medical Question/Miscellaneous 06/15/2025 1:50 PM CDT Lab [address] [address] Change in stool caliber 06/14/2025 3:45 PM CDT Office Visit [facility] Care at [address] [address] Manuel Ziegler MD Change in stool caliber (Primary Dx) 05/30/2025 7:30 PM CDT Office Visit [facility] Care at [address] [address] Mine Blas [place] Nasopharyngitis (Primary Dx) from Last 3 Months Immunizations Immunization Administration Dates Next Due COVID-19 mRNA (Profound) 0.3 m L (30 mcg) vaccine (12 years and up) 06/24/2024,07/14/2023 Influenza, Quadrivalent, Jennifer l Culture-based MDCK, Preservative Free, Antibiotic Free, Intramuscular 07/14/2023,07/18/2022 Influenza, Quadrivalent, Rec ombinant, Egg Free, Preservative Free, Intramuscular 09/03/2018 Influenza, Quadrivalent, Spl it, Preservative Free, Intramuscular 07/10/2020,08/06/2019 Influenza, Trivalent, High D ose, Split, Preservative Free, Intramuscular 06/24/2024 Influenza, Trivalent, IM (MDV) 07/12/2021,2019,09/03/2018 Influenza, Unspecified 07/30/2023,06/30/2021 Moderna SARS-CoV-2 Monovalen t Vaccination (12+ YRS) 07/27/2021 Pfizer SARS-CoV-2 Monovalent Vaccination (12+ Yrs) [...] hypertension 10/27/2015 Essential hypertension Coronary arteriosclerosis in [place] artery 12/18/2015 CAD in [place] artery Hypercholesterolemia 05/29/2016 Hypercholes terolemia Retinal ischemia 08/06/2017 Osteopenia 06/19/2019 Multiple sclerosis 10/27/2015 Multiple scle rosis 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 Not on file Not on file Not on file Obstetrics History Last Filed Vital Signs Vital Sign Reading Time Taken Comments Blood Pressure 119/67 07/10/2025 7:22 PM CDT Pulse 62 07/10/2025 7:22 PM CDT Temperature 36.6 C (97.8 F) 07/10/2025 7:22 PM CDT Respiratory Rate 20 07/10/2025 7:22 PM CDT Oxygen Saturation 99% 07/10/2025 7:22 PM CDT Inhaled Oxygen Concentration - - Weight 57.6 kg (127 lb) 07/10/2025 7:22 PM CDT Height 157.5 cm (5' 2) 06/14/2025 3:49 PM CDT Body Mass Index 23.23 06/14/2025 3:49 PM CDT Plan of Treatment Health Maintenance Due Date Last Done Comments Influenza Vaccine (#1) 2025 , 07/30/2023, 07/14/2023, Additional history exists Fall Risk Assessment 09/01/2025 09/01/2024, 08/25/2023, 02/19/2023 Well Visit 65+ 09/01/2025 09/01/2024, 08/08/2021 Breast Cancer Screening-Mammogram 09/28/2025 09/28/2024, 09/18/2023, 08/21/2022, Additional history exists DTaP/Tdap/Td Vaccine (2 - Td or Tdap) 10/31/2025 10/31/2015 Depression Screening 03/02/2026 03/02/2025, 01/26/2025, 09/01/2024, Additional history exists Covid-19 Vaccine ( season) 2026 06/24/2024, 07/30/2023, 07/14/2023, Additional history exists Postponed from 05/30/2025 (Patient declined, but will receive in the future) Osteoporosis Screening-Bone Density Scan 02/23/2027 02/23/2025, 02/04/2024, 01/13/2023, Additional history exists Colon Cancer Screening-Colonoscopy 01/24/2035 01/24/2025, 12/23/2016 Zoster Vaccine Completed 11/25/2019, 08/06/2019 Hepatitis C Screening Completed 01/02/2021 Pneumococcal vaccine 65+ Completed 09/01/2024 Colon Cancer Screening-CT Colonography Discontinued 01/24/2025, 12/23/2016 Colon Cancer Screening-DNA Stool Discontinued 01/24/2025, 12/23/2016 Colon Cancer Screening-FIT Discontinued 01/24/2025, Colon Cancer Screening-Sigmoidoscopy Discontinued 01/24/2025, 12/23/2016 Hepatitis B Screening Completed 02/22/2025 Procedures Procedure Name Priority Date/Time Associated Diagnosis Comments CRYPTOSPORIDIUM AND GIARDIA ANTIGEN ASSAY Routine 06/27/2025 8:05 AM CDT Change in stool DEXA TBS AXIAL SKELETON BONE DENSITY 1 OR MORE SITES Schedule Routine, Read Routine (OP Routine) 02/23/2025 10:18 AM CDT Osteopenia, unspecified location Other specified disorders of bone density and structure, multiple sites COLONOSCOPY Routine 01/24/2025 1:17 PM CDT SCREENING MAMMOGRAM BILATERAL W LENARD Schedule Routine, Read Routine (OP Routine) 09/28/2024 9:35 AM EXTRUDER OPERATOR HORIZONTAL Screening mammogram, encounter for HEPATITIS PANEL, ACUTE Routine 8:48 AM CDT Multiple sclerosis (HCC) High risk medication use from Last 3 Months or Most Recently Relevant to Health Maintenance Results * Cryptosporidium and Giardia antigen assay Stool (06/27/2025 8:05 AM CDT) Giardia Ag Negative Negative Comment:Testing performed by : [facility], [address] [place]., [address] Cryptosporidium Ag Negative Negative SERINA Comment: Interpretive data: Testing performed by the [facility] using an immunoassay that detects Cryptosporidium and Giardia antigens in stool specimens. If comprehensive examination for ova and parasites is required, please request Ova and Parasite Examination. Testing performed by: [facility], [address] [place]., [address] Stool 06/27/2025 8:05 AM CDT 06/27/2025 1:52 PM CDT us Manuel Ziegler MD LAB MICROBIOLOGY - GENERAL ORDERABLES Final Result Performing Organization Address City/State/[facility] Co de Phone Number SERINA [phone] [facility] [place] [address] * Dexa TBS Axial Skeleton Bone Density 1 or more sites (02/23/2025 10:18 AM CDT) Anatomical Region Laterality Modality Wrist, Body N/A Radiographic Estelita ging Narrative 02/24/2025 11:08 AM CDT Patient Name: Екатерина Raza Date of : 1960 Date of scan: 02/23/2025 Bone mineral density was performed on a [employer] Discovery Densitometer. Based on machine cross-calibration and precision studies the least significant changes of this densitometer is 0.024 g/cm2 at the spine, 0.020 g/cm2 at the total proximal femur, and 0.014g/cm2 at the forearm. HISTORY: This is a 65 y.o. postmenopausal female with a history of low bone mass. She reports that she has never smoked. She has never been exposed to tobacco smoke. She has never used smokeless tobacco. Currently on treatment with calcium, vitamin D, and ibandronate (Boniva) and previously treated with hormone replacement therapy. INDICATIONS: Menopause status, treatment monitoring, and history of low bone mass. FINDINGS: BONE MINERAL DENSITY OF THE LUMBAR SPINE Bone Mineral Density (BMD) of the lumbar spine was measured from L1-L4 and the average density was calculated to be 0.857 gm/cm2. This corresponds to a T-score (standard deviations from the mean of young adults) of -1.7. When compared to the previous study of 02/04/2024 there has been a -0.029 gm/cm (-3.3%) decrease in bone density that is considered significant. BONE MINERAL DENSITY OF THE PROXIMAL FEMUR Bone Mineral Density (BMD) of the left hip total was found to be 0.760 gm/cm2. This corresponds to a T-score standard deviations from the mean of young adults of -1.5. Femoral neck is 0.641 gm/cm2 with a T-score (standard deviations from the mean of young adults) of -1.9. When compared to the previous study of 02/04/2024 there has been no significant changes in bone density. SUMMARY: Bone mineral density shows evidence of low bone mass at the lumbar spine and proximal femur and moderately increased fracture risk (Osteopenia). There has been a significant decrease in bone density since previous measurement. The lumbar spine Trabecular Bone Score is 1.413 which suggests normal bone microarchitecture, compared to [...] bone mineral density scan were prepared by Juliet Torres)(CBDT)who is accredited by the International Society of Clinical Densitometry. The overall patient assessment and scan interpretation were performed by Brandon Marquez M.D. who is certified by the International Society of Clinical Densitometry. [id number] us Екатерина Thomas DNP IMG DXA PROCEDURES Final Result * Colonoscopy (01/24/2025 1:17 PM CDT) Anatomical Region Laterality Modality Other Historical Provider ENDOSCOPY PROCEDURES Hortencia l Result * Screening Mammogram Bilateral W Lenard (09/28/2024 9:35 AM EXTRUDER OPERATOR HORIZONTAL) Anatomical Region Laterality Modality Breast Bilateral Mammography Narrative 09/28/2024 1:17 PM EXTRUDER OPERATOR HORIZONTAL Mammogram Technique: Bilateral Digital Breast Tomosynthesis, Bilateral C-view 2D Screening mammogram. Views obtained: bilateral craniocaudal and bilateral mediolateral oblique. Computer Aided Detection was performed. Mammogram Findings: The present examination has been compared to prior imaging studies performed at [facility] on 04/09/2021, 08/21/2022 and 09/18/2023. [...] compared to prior imaging studies performed at [facility] on 04/09/2021, 08/21/2022 and 09/18/2023. There are scattered areas of fibroglandular density. There is no suspicious abnormality in either breast. Impression: There is no mammographic evidence of malignancy. Annual screening mammography is recommended. OVERALL FINAL ASSESSMENT: BI-RADS CATEGORY 1: Negative. Self Screening Mammogram IMG MAMMO PROCEDURES Fi nal Result * Hepatitis panel, acute (01/02/2021 8:48 AM CDT) Hep A IgM NON-REACTIVE NON-REACT JACKELINE [facility] Comment: For additional information, please refer to http://DISKOVRe.ViClone/faq/SYO779 (This link is being provided for informational/ [...] a test for HCV RNA (test code 50087) is suggested. For additional information please refer to http://DISKOVRe.ViClone/faq/FJZ64r1 (This link is being provided for informational/ [...] GENERAL OR DERABLES Final Result [facility] [address] [place] [address] from Last 3 Months or Most Recently Relevant to Health Maintenance Insurance [facility] ACCESS CHOICE MEDICARE [facility] MEDICARE AARP Care Teams Business Intelligence Manager Relationship Specialty Start Date End Date Manuel Ziegler MD [address] [facility] [address] [place] [address] PCP - General Family Medicine 08/08/21 Estella Lozoya NP [address] [facility] [address] [place] [address] Registered Nurse 02/18/22 Ralph Bosch MD [address] [facility] [address] [place] [address] Referring Physician Obstetrics and Gynecology 08/21/22 Abhishek Edwards MD [address] [place] [address] Consulting Physician Otolaryngology 09/01/24 Duncan Jones MD [address] [place] [address] Consulting Physician Neurology 09/01/24 Branodn Marquez MD [address] [facility] [address] [place] [address] Referring Physician Bone Health 09/01/24 Meg Rueda MD [address] [facility] [address] [place], [place] [id number] Referring Physician Cardiology 09/01/24 Sofia Covarrubias MD [address] [facility] [address] [place] [address] Consulting Physician Interventional Cardiology 09/01/24 Miguel Jay MD [address] [facility] [address] [place], [place] [id number] Gastroenterology 06/14/25
[2025-07-20 06:40] VITALS: BP 139/53; PULSE 56; RESP 16; TEMP 36.5; O2SAT 100; BMI 23.2
[2025-07-20] MEDS: SIMETHICONE ORAL SUSPENSION 20 MG/0.3 ML 30 ML BOTTLE 1.8 ML PO (07:00)
[2025-07-20] MEDS: LACTATED RINGERS 1,000 ML 150 ML IV CONT (07:01)
--- NOTE | 2025-07-20 07:01 | WPDANESEPPF ---
Anes - Initial Pre Proc Eval Procedure: Operation Date: 07/20/25 08:00 Proposed Procedures p Esophagogastroduodenoscopy - Miguel Jay MD Date/Time: 07/20/25 07:01 Surgeon: Miguel Jay MD Pre Op Diagnosis: Gastro-esophageal reflux disease without esophagit Patient Data Age: 65 Gender: F Height: 1.57 m Weight: 57.7 kg Last Vital Signs Temp 36.5 C 07/20/25 06:40 Pulse 56 L 07/20/25 06:40 Resp 16 07/20/25 06:40 BP 139/53 L 07/20/25 06:40 Pulse Ox 100 07/20/25 06:40 O2 Del Method Room Air 07/20/25 06:40 Allergies Allergy/AdvReac Type Severity Reaction Status Date / Time clavulanic acid (From Allergy Unknown Unknown Verified 07/13/25 15:44 Augmentin) amoxicillin AdvReac Unknown Diarrhea Verified 07/13/25 15:44 POTASSIUM CLAVULANATE Allergy Unknown DIARRHEA Uncoded 01/24/25 09:23 Home Medications ?Medication ?Instructions ?Recorded ?Confirmed ?Type aspirin 81 mg tablet,delayed 81 mg PO DAILY 03/27/20 07/20/25 History release (Adult Low Dose Aspirin) cholecalciferol (vitamin D3) 100 100 mcg PO DAILY 03/27/20 07/20/25 History mcg (4,000 unit) capsule magnesium 200 mg tablet 200 mg PO DAILY 03/27/20 07/20/25 History rosuvastatin 20 mg tablet 20 mg PO DAILY 03/27/20 07/20/25 History coenzyme Q10 75 mg capsule (Ultra 75 mg PO DAILY 07/13/21 07/20/25 History CoQ10) ibandronate 150 mg tablet (Boniva) 150 mg PO MONTHLY 07/25/22 07/20/25 History clobetasol 0.05 % topical ointment 1 applic topical DAILY PRN itching 11/20/23 07/13/25 Rx #15 grams triamcinolone acetonide 0.1 % 1 applic topical DAILY PRN itching 11/20/23 07/13/25 Rx topical ointment #15 grams metoprolol succinate 25 mg 50 mg PO DAILY 09/14/24 07/13/25 History tablet,extended release 24 hr sodium sul 1.479 gram-potas ch See Rx Instructions PO PER PKG DIR 01/10/25 07/13/25 Rx 0.188 gram-magnes sul 0.225 gram #24 tabs tablet (Sutab) prasterone (DHEA) 6.5 mg vaginal 1 insert vaginal DAILY #28 ea 06/16/25 07/20/25 Rx insert (Intrarosa) carvedilol 12.5 mg tablet 12.5 mg PO Q12H 07/07/25 07/20/25 History dicyclomine 10 mg capsule 10 mg PO TID #90 caps 07/07/25 07/20/25 Rx lisinopril 20 mg tablet 20 mg PO DAILY 07/07/25 07/20/25 History Patient hx anesthesia problems: none Family hx anesthesia problems: none Results Review: All pre-operative results and documents have been reviewed as part of the pre-operative evaluation. [facility] Past Medical History Medical History Osteopenia Adhesive capsulitis of left shoulder Left shoulder pain Trochanteric bursitis of left hip Fibrous cortical defect of femur Left hip pain SLAP tear of shoulder Biceps tendonitis Seasonal allergies Vision abnormalities Subacromial bursitis Adhesive capsulitis Right shoulder pain Multiple sclerosis Hypertension Surgical History Surgical History History of tonsillectomy History of cardiac cath H/O total hysterectomy Family History Family History Grandparent Carcinoma of colon Hypertension Cerebrovascular accident Father Family history of coronary artery disease Mother Family history of thyroid disease Family history of hyperthyroidism Sibling Family history of hyperthyroidism Social History Social History Smoking status: Never smoker Second hand tobacco smoke exposure: No Alcohol intake: current Drinks per week: 1 Substance use type: does not use Living arrangements: with family Spiritual care concerns: No Anes - Eval Final PreProcedure Day of Procedure 07/20/25 07:01 Patient weight: normal Heart: regular rate and rhythm Lungs: clear to auscultation Airway: Mallampati scale class II Neurological: alert and oriented Last oral intake: >/= 8 hours ASA classification: III Emergent: no Anesthetic plan: proceed Anesthesia type and monitoring: general GIVS and standard monitoring Results Review: All pre-operative results and documents have been reviewed as part of the pre-operative evaluation. Informed Consent: The patient's anesthetic plan and its attendant risks and benefits were discussed with the patient/family/POA. Questions were solicited and answers provided to the satisfaction of the patient/family/POA.
--- NOTE | 2025-07-20 07:20 | PM.IMHP ---
H&P: HPI History of Present Illness Date/Time: 07/20/25 07:20 Chief Complaint: Hoarseness-rule out atypical GERD Narrative: Patient referred for the suspicion of atypical GERD, based on permanent hoarseness. She denies classic heartburn, regurgitation, chest pain or dysphagia. She tried omeprazole and caused mental fogginess and fatigue, and famotidine was even worse, having to discontinue both medications. She is now referred for EGD. Review of Systems Review of Systems: All systems reviewed & are unremarkable except as noted in HPI and below PMFSH Past Medical History Medical History Osteopenia Adhesive capsulitis of left shoulder Left shoulder pain Trochanteric bursitis of left hip Fibrous cortical defect of femur Left hip pain SLAP tear of shoulder Biceps tendonitis Seasonal allergies Vision abnormalities Subacromial bursitis Adhesive capsulitis Right shoulder pain Multiple sclerosis Hypertension Surgical History Surgical History History of tonsillectomy History of cardiac cath H/O total hysterectomy Family History Family History Grandparent Carcinoma of colon Hypertension Cerebrovascular accident Father Family history of coronary artery disease Mother Family history of thyroid disease Family history of hyperthyroidism Sibling Family history of hyperthyroidism Social History Social History Smoking status: Never smoker Second hand tobacco smoke exposure: No Alcohol intake: current Drinks per week: 1 Substance use type: does not use Living arrangements: with family Spiritual care concerns: No Meds Home Medications and Allergies Home Medications ?Medication ?Instructions ?Recorded ?Confirmed ?Type aspirin 81 mg tablet,delayed 81 mg PO DAILY 03/27/20 07/20/25 History release (Adult Low Dose Aspirin) cholecalciferol (vitamin D3) 100 100 mcg PO DAILY 03/27/20 07/20/25 History mcg (4,000 unit) capsule magnesium 200 mg tablet 200 mg PO DAILY 03/27/20 07/20/25 History rosuvastatin 20 mg tablet 20 mg PO DAILY 03/27/20 07/20/25 History coenzyme Q10 75 mg capsule (Ultra 75 mg PO DAILY 07/13/21 07/20/25 History CoQ10) ibandronate 150 mg tablet (Boniva) 150 mg PO MONTHLY 07/25/22 07/20/25 History clobetasol 0.05 % topical ointment 1 applic topical DAILY PRN itching 11/20/23 07/13/25 Rx #15 grams triamcinolone acetonide 0.1 % 1 applic topical DAILY PRN itching 11/20/23 07/13/25 Rx topical ointment #15 grams metoprolol succinate 25 mg 50 mg PO DAILY 09/14/24 07/13/25 History tablet,extended release 24 hr sodium sul 1.479 gram-potas ch See Rx Instructions PO PER PKG DIR 01/10/25 07/13/25 Rx 0.188 gram-magnes sul 0.225 gram #24 tabs tablet (Sutab) prasterone (DHEA) 6.5 mg vaginal 1 insert vaginal DAILY #28 ea 06/16/25 07/20/25 Rx insert (Intrarosa) carvedilol 12.5 mg tablet 12.5 mg PO Q12H 07/07/25 07/20/25 History dicyclomine 10 mg capsule 10 mg PO TID #90 caps 07/07/25 07/20/25 Rx lisinopril 20 mg tablet 20 mg PO DAILY 07/07/25 07/20/25 History Allergies Allergy/AdvReac Type Severity Reaction Status Date / Time clavulanic acid (From Allergy Unknown Unknown Verified 07/13/25 15:44 Augmentin) amoxicillin AdvReac Unknown Diarrhea Verified 07/13/25 15:44 POTASSIUM CLAVULANATE Allergy Unknown DIARRHEA Uncoded 01/24/25 09:23 Vital Signs Vital Signs - 24 hr 07/20/25 06:40 Temperature 97.7 F Pulse Rate 56 L Respiratory Rate 16 Blood Pressure 139/53 L Pulse Oximetry 100 Oxygen Delivery Room Air Exam Const: General: cooperative and healthy appearing Resp: Effort & Inspection: normal respiratory effort and able to speak in complete sentences Auscultation: clear to auscultation bilaterally Cardio: Rate: regular rate Rhythm: regular rhythm GI: Inspection: normal to inspection GI Palp: No No hepatosplenomegaly present Auscultation: normal bowel sounds Rectal Exam: deferred Skin: General skin exam: normal color Psych: Appearance: grossly normal Mental Status: mental status grossly normal Assessment and Plan Assessment and plan (1) GERD (gastroesophageal reflux disease): Code(s): K21.9 - Gastro-esophageal reflux disease without esophagitis Status: Acute Assessment and Plan: The patient is deemed a good candidate for the procedure. Consent signed. Will proceed.
--- NOTE | 2025-07-20 08:03 | S_PTH ---
PATIENT: Екатерина Raza LOC: [facility] U#:[id number] AGE/SX: 65/F ROOM: RE07/20/[address]: Miguel Jay MD : 1960 BED: DIS: 07/20/2025 SPEC #: [id number] RECD: 07/20/25 11:06 STATUS: CHET REQ #: [id number] PAOLO: 07/20/25 08:[address]: Miguel Jay DEPT: [facility] Surgical RECD BY: Jeannie Malone ENTERED: 07/20/25 11:06 SP TYPE: Surgical OTHR DR: Manuel ZieglerMD Tissues: A - Gastric Biopsy B - Gastric Biopsy Procedures: Hematoxylin and Eosin Stain Gross and Microscopic Level 4
[2025-07-20 08:09] VITALS: BP 76/33; PULSE 48; RESP 16; O2SAT 97
[2025-07-20 08:19] VITALS: BP 91/47; PULSE 48; RESP 16; O2SAT 98
[2025-07-20 08:29] VITALS: BP 115/53; PULSE 49; RESP 16; O2SAT 98
== END 2025-07-20 08:43 | disposition home or self-care (01) ==
PROVIDERS: PCP Family Medicine; Referring Provider Nurse Practitioner Family; Visit Provider Internal Medicine Gastroenterology
PROC: 0DJ08ZZ Inspection of Upper Intestinal Tract, Via Natural or Artificial Opening Endoscopic (ICD-10-PCS; CPT 43239; principal; 2025-07-20 08:00)
DX: K21.9 Gastro-esophageal reflux disease without esophagitis (principal); K29.30 Chronic superficial gastritis without bleeding
CPT/HCPCS: 43239; 88305; J2003; J2704; J7120